=== PATIENT | male | born 2000 | race African-American/Black ===

== ENCOUNTER 2023-10-10 17:01 | Emergency (ER) | payer OTHER, SELFPAY ==
[2023-10-10 17:16] VITALS: BP 118/54; PULSE 79; RESP 16; TEMP 36.9; O2SAT 100
--- NOTE | 2023-10-10 17:35 | ED.URI ---
HPI - URI/Sore Throat General Chief Complaint: Upper Respiratory Infection Stated Complaint: Sinus Pain/Headache Time Seen by Provider: 10/10/23 17:35 Source: patient Mode of arrival: ambulatory Limitations: no limitations History of Present Illness HPI Narrative: 23-year-old male presents with complaint of sinus congestion, sinus pressure for the past 2 weeks. Was seen at a no other urgent care 2 days ago and given Augmentin and nasal spray. Did not take Augmentin dose this morning because sore throat pain resolved. Patient reports that he is fatigued and does not want to to work. Requesting work note. All systems reviewed and negative except as noted above. Related Data Home Medications Medication Instructions Recorded Confirmed amoxicillin 875 mg-potassium tablet 10/10/23 clavulanate 125 mg tablet fluticasone propionate 50 intranasal 10/10/23 mcg/actuation nasal spray,suspension Allergies Allergy/AdvReac Type Severity Reaction Status Date / Time No Known Allergies Allergy Verified 10/10/23 17:15 Review of Systems Review of Systems: CONSTITUTIONAL: Denies fever, chills, or sweats. EYES: Denies visual changes, redness, or discharge. ENT: Reports rhinorrhea, congestion, sinus pressure, sore throat. Denies otalgia. CARDIOVASCULAR: Denies chest pain, palpitations, or edema. RESPIRATORY: Denies cough or dyspnea. GASTROINTESTINAL: Denies abdominal pain, nausea, vomiting, or diarrhea. GENITOURINARY: Denies dysuria or hematuria. SKIN: Denies rash or itching. MUSCULOSKELETAL: Denies back pain, joint pain, or myalgia. NEUROLOGIC: Denies headache, numbness, or weakness. PSYCHIATRIC: Denies anxiety or depression. All other systems reviewed are negative, except as documented in HPI. PMFSH Comments At time of signature, agree with nursing past medical, surgical, social and family history. There is no relevant family history pertinent to the presenting complaint. Exam Narrative: GENERAL: This is a well-nourished, well-developed patient, in no apparent distress. HEAD: normocephalic, atraumatic. EYES: PERRL. Sclera clear/white. Vision is grossly intact. EARS: External ears normal, auditory canals clear and without drainage, fluid bilateral TMs without erythema or perforation. Hearing grossly intact. NOSE: External nose normal with purulent nasal drainage, erythema and swelling to bilateral nares. THROAT: Mucous membranes moist, mild erythema with postnasal drainage NECK: Neck supple, non-tender without lymphadenopathy, masses or thyromegaly. CARDIOVASCULAR: Regular rate and rhythm without murmurs, gallops, or rubs. RESPIRATORY: Clear to auscultation. Breath sounds equal bilaterally. No wheezes, rales, or rhonchi. SKIN: warm, Dry, intact with no suspicious lesions or rash, good texture and turgor. NEURO: awake, alert, and oriented to person, place and time. There were no obvious focal neurologic abnormalities. EXTREMITIES: No joint tenderness, effusion, or edema noted. Course Course Level of Care: Express Care Visit Vital Signs Vital signs: Vital Signs Temperature 36.9 C 10/10/23 17:16 Pulse Rate 79 10/10/23 17:16 Respiratory Rate 16 10/10/23 17:16 Blood Pressure 118/54 L 10/10/23 17:16 Pulse Oximetry 100 10/10/23 17:16 Oxygen Delivery Room Air 10/10/23 17:16 Temperature 36.9 C 10/10/23 17:16 Pulse Rate 79 10/10/23 17:16 Respiratory Rate 16 10/10/23 17:16 Blood Pressure 118/54 L 10/10/23 17:16 Pulse Oximetry 100 10/10/23 17:16 Oxygen Delivery Room Air 10/10/23 17:16 Reviewed MDM - URI/Sore Throat MDM Narrative Medical decision making narrative: Recommend patient continue Augmentin course. Will prescribe prednisone and antihistamine for bacterial sinusitis. Patient is aware of diagnosis, understands and agrees to treatment plan. Anticipatory guidance given. Patient agrees to follow-up as directed and is aware of reasons to seek care at the
== END 2023-10-10 17:46 | disposition home or self-care (01) ==
PROVIDERS: Emergency Provider Nurse Practitioner Family
DX: J01.90 Acute sinusitis, unspecified (principal)
CPT/HCPCS: 99213; G0463

== ENCOUNTER 2023-12-08 12:25 | Emergency (ER) | payer OTHER, SELFPAY ==
[2023-12-08 12:32] VITALS: BP 120/58; PULSE 65; RESP 20; TEMP 37.2; O2SAT 100
--- NOTE | 2023-12-08 12:40 | ED.GENADULT ---
HPI - General Adult General Chief complaint: Headache Stated complaint: Headache Time Seen by Provider: 12/08/23 12:40 Source: patient, RN notes reviewed and old records reviewed Mode of arrival: ambulatory Limitations: no limitations History of Present Illness HPI narrative: 23-year-old male to Express Care for complaint of intermittent headache for 3 days as well sinus congestion. Patient reports that the nasal discharge is yellow to clear. Patient denies fever sore throat, ear pain dizziness, visual changes, shortness breath. patient has attempted to treat at home with ibuprofen with limited relief. Patient states he was seen here not long ago and treated for sinusitis. Patient able to tolerate fluids by mouth. Respirations even nonlabored. Patient able to speak in complete sentences without difficulty. Patient in no acute distress. 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 Patient denies wearing ear protection. Patient requesting note for work. Related Data Allergies Allergy/AdvReac Type Severity Reaction Status Date / Time No Known Allergies Allergy Verified 10/10/23 17:15 Review of Systems Review of Systems: All systems reviewed & are unremarkable except as noted in HPI and below Constitutional: Constitutional: Reports no additional constitutional complaints Eyes: Eyes: Reports no additional eye complaints ENT: Reports system reviewed and no additional complaints, except as documented Cardiovascular: Cardiovascular: Reports no additional cardiovascular complaints, Denies chest pain and Denies dyspnea Respiratory: Respiratory: Reports no additional respiratory complaints, Denies cough and Denies dyspnea Musculoskeletal: Musculoskeletal: Reports no additional musculoskeletal complaints Neurologic: Reports system reviewed and no additional complaints, except as documented Psychiatric: Psychiatric: Reports no additional psychiatric complaints PMFSH Comments At the time of my signature, I reviewed and agree with the nursing past medical, surgical, social, and family history. There is no relevant family history pertinent to the patient complaint. Exam Const: General: cooperative, healthy appearing, comfortable, no acute distress, alert and well nourished Nutritional Appearance: well nourished Orientation/consciousness: patient oriented x3 Limitations: no limitations HENMT: Head: normal to inspection Ears: external ears normal Face/Nose/Sinus: Normal external nose present, Normal nares present, normal facial exam, No erythema and No edema Face and sinus: normal facial exam, no erythema and no edema Mouth: Yes Normal oral and palatal mucosa present Eyes: General: appearance normal, both eyes and all related structures Neck: Neck: normal visual inspection, full ROM and no meningeal signs Lymphatic: no lymphadenopathy noted and no lymphedema noted Chest: Chest palpation & inspection: normal inspection of the chest Resp: Effort & Inspection: normal respiratory effort and able to speak in complete sentences Auscultation: clear to auscultation bilaterally Cardio: Jugular venous distension: no JVD Rate: regular rate Rhythm: regular rhythm Back/Spine/Pelvis: Cervical Spine: cervical ROM normal Skin: General skin exam: normal color, no rashes or lesions noted and turgor normal Neuro: General: patient oriented x3, gait normal, moves all extremities and no meningeal signs Speech: normal speech Gait exam (Neuro): Normal gait present Extrem: General: normal to inspection, full ROM and capillary refill normal Psych: Appearance: grossly normal and well kempt Course Course Emergency Course: Some parts of this dictation were generated by voice recognition software and may contain typographical and/or grammatical inaccuracies. Level of Care: Express Care Visit Vital Signs Vital signs: Vital Signs Temperature 37.2 C 12/08/23 12:32
== END 2023-12-08 13:00 | disposition home or self-care (01) ==
PROVIDERS: Emergency Provider Nurse Practitioner Family
DX: J01.90 Acute sinusitis, unspecified (principal)
CPT/HCPCS: 99213; G0463

== ENCOUNTER 2023-12-10 08:45 | Emergency (ER) | payer OTHER, SELFPAY ==
[2023-12-10 08:51] VITALS: BP 130/69; PULSE 72; RESP 18; TEMP 37.3; O2SAT 100
--- NOTE | 2023-12-10 08:58 | ED.HA ---
HPI - Headache General Chief Complaint: Headache Stated Complaint: headache Time Seen by Provider: 12/10/23 08:58 Source: patient Mode of arrival: ambulatory Limitations: no limitations History of Present Illness HPI Narrative: 23 y/o male presented for c/o headache x4-5 days, with associated nasal congestion. Pt was seen 2 days ago for the same, given Rx levaquin and prednisone (also given work note). Continues to take Tylenol, ibuprofen, Excedrin without much improvement. 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 Pain is to the back of the head. Denies neck pain, numbness, tingling or weakness of upper extremities, dizziness, n/v/d/f/c. Related Data Allergies Allergy/AdvReac Type Severity Reaction Status Date / Time No Known Allergies Allergy Verified 10/10/23 17:15 Review of Systems Review of Systems: CONSTITUTIONAL: Denies body aches, fever, chills, or sweats. EYES: Denies visual changes, redness, or discharge. ENT: reports rhinorrhea, congestion, Denies sore throat, or otalgia. CARDIOVASCULAR: Denies chest pain, palpitations, or edema. RESPIRATORY: Denies cough or dyspnea. GASTROINTESTINAL: Denies abdominal pain, nausea, vomiting, or diarrhea. SKIN: Denies rash, itching, or wounds. MUSCULOSKELETAL: Denies back pain, joint pain, or myalgia. NEUROLOGIC: reports headache, Denies numbness, tingling, or weakness. All systems reviewed & are unremarkable except as noted in HPI and below PMFSH Comments At time of signature, I have reviewed and agree with nursing past medical, surgical, social and family history unless otherwise noted. Please see nursing chart for further information. There is no relevant family history pertinent to the presenting complaint Exam Narrative: GENERAL: Well-appearing HEAD: Normocephalic, atraumatic. EYES: EOMI. PERRLA, No redness or drainage. Conjunctivae normal. ENT: Mucous membranes pink and moist. No rhinorrhea. TMs normal bilaterally; left canal with excess cerumen. Throat normal. Uvula midline. NECK: Normal AROM. Supple. No lymphadenopathy. CHEST: No respiratory distress. Clear to auscultation. HEART: Regular rate and rhythm. No murmur appreciated. Normal peripheral pulses. ABDOMEN: Soft, nontender, nondistended, normal active bowel sounds. SKIN: Warm, dry, no rash. Capillary refill normal. Normal skin turgor. NEURO: No focal deficits. Alert and oriented x3. Gait steady. PSYCH: Normal affect. Course Course Emergency Course: Patient is aware of diagnosis, understands and agrees to treatment plan. Anticipatory guidance given. Patient agrees to follow-up as directed and is aware of reasons to seek care at the emergency department. Portions of this record may have been created with voice recognition software Level of Care: Express Care Visit Vital Signs Vital signs: Vital Signs Temperature 99.2 F 12/10/23 08:51 Pulse Rate 72 12/10/23 08:51 Respiratory Rate 18 12/10/23 08:51 Blood Pressure 130/69 12/10/23 08:51 Pulse Oximetry 100 12/10/23 08:51 Oxygen Delivery Room Air 12/10/23 08:51 Temperature 99.2 F 12/10/23 08:51 Pulse Rate 72 12/10/23 08:51 Respiratory Rate 18 12/10/23 08:51 Blood Pressure 130/69 12/10/23 08:51 Pulse Oximetry 100 12/10/23 08:51 Oxygen Delivery Room Air 12/10/23 08:51 MDM - Headache MDM Narrative Medical decision making narrative: Discussed physical exam findings c/w headache, pt requesting work note. Discussed ER transfer for persistent headache, but pt will monitor at this time. Declined covid testing. Rx ibuprofen and cyclobenzaprine, short course. Advised supportive measures and signs/symptoms to go to the ER. Pt is appropriate for outpt treatment and f/u. Differential Diagnosis Differential diagnosis: Likely migraine, tension headache, headache, sinusitis and other Discharge Plan Discharge Clinical Impres
== END 2023-12-10 09:17 | disposition home or self-care (01) ==
PROVIDERS: Emergency Provider Nurse Practitioner Family
DX: R51.9 Headache, unspecified (principal)
CPT/HCPCS: 99213; G0463

== ENCOUNTER 2024-04-05 12:23 | Emergency (ER) | payer OTHER, SELFPAY ==
[2024-04-05 12:32] VITALS: BP 116/70; PULSE 78; RESP 20; TEMP 36.8; O2SAT 100
--- NOTE | 2024-04-05 13:01 | ED.URI ---
HPI - URI/Sore Throat General Chief Complaint: Upper Respiratory Infection Stated Complaint: Sinus Congestion/Cough Blood Time Seen by Provider: 04/05/24 13:02 Source: patient and RN notes reviewed Mode of arrival: ambulatory Limitations: no limitations History of Present Illness HPI Narrative: 23-year-old male presents concern for 5 day history of cough, sinus pressure, headache and sore throat. Reports he started having a nose bleed today. He reports he is having chills, sweats, body aches before bed. He has not taken any medication for his symptoms MD elicited complaint: cough and nasal congestion Related Data Allergies Allergy/AdvReac Type Severity Reaction Status Date / Time No Known Allergies Allergy Verified 04/05/24 12:42 Review of Systems Review of Systems: CONSTITUTIONAL: Reports malaise, chills, sweats EYES: Denies visual changes, redness, or discharge. ENT: Reports rhinorrhea, congestion, bloody nose otalgia and sore throat. CARDIOVASCULAR: Denies chest pain, palpitations, or edema. RESPIRATORY: Reports cough. Denies dyspnea. GASTROINTESTINAL: Denies abdominal pain, nausea, vomiting, diarrhea SKIN: Denies rash or itching. MUSCULOSKELETAL: Reports myalgia. NEUROLOGIC: Denies headache. All systems reviewed & are unremarkable except as noted in HPI and below PMFSH Comments At time of signature, agree with nursing past medical, surgical, social and family history. There is no relevant family history pertinent to the presenting complaint Exam Narrative: GENERAL: Well-appearing, well-nourished, and in no acute distress. HEAD: Normocephalic EYES: PERRLA, conjunctivae clear ENT: Nares clear, turbinates edematous and erythematous, clear discharge. Mucous membranes moist. TM pearly juarez with dull light reflex bilaterally; no tragal tenderness. Oropharynx not erythematous without lesions. Tonsils not enlarged and without exudate, no drooling, no hoarseness, no trismus, uvula midline. NECK: Supple. No lymphadenopathy CHEST: Clear to auscultation, breath sounds equal. No wheezing, rhonchi, rales, or stridor. No respiratory distress, speaks in full sentences. HEART: Regular rate and rhythm. No murmur heard. SKIN: Warm, dry, no rash. NEURO: Alert and oriented x3. PSYCH: Normal mood and affect Course Course Emergency Course: Patient is aware of diagnosis, understands and agrees to treatment plan. Anticipatory guidance given. Patient agrees to follow-up as directed and is aware of reasons to seek care at the emergency department. Portions of this record may have been created with voice recognition software Level of Care: Express Care Visit Vital Signs Vital signs: Vital Signs Temperature 98.2 F 04/05/24 12:32 Pulse Rate 78 04/05/24 12:32 Respiratory Rate 20 04/05/24 12:32 Blood Pressure 116/70 04/05/24 12:32 Pulse Oximetry 100 04/05/24 12:32 Oxygen Delivery Room Air 04/05/24 12:32 Temperature 98.2 F 04/05/24 12:32 Pulse Rate 78 04/05/24 12:32 Respiratory Rate 20 04/05/24 12:32 Blood Pressure 116/70 04/05/24 12:32 Pulse Oximetry 100 04/05/24 12:32 Oxygen Delivery Room Air 04/05/24 12:32 Reviewed. MDM - URI/Sore Throat MDM Narrative Medical decision making narrative: Differential diagnosis considered: Weiss virus, strep pharyngitis, allergic rhinitis, upper respiratory tract infection, sinusitis, rhinosinusitis, nasopharyngitis. viral pharyngitis, otitis media, otitis externa, pneumonia, bronchitis, viral cough syndrome, viral syndrome, and influenza. Exam findings show no acute concerns or changes; patient is non-toxic appearing and is in no distress. Patient is appropriate for outpatient treatment and follow-up. Lab Data Attestation: I reviewed the patient's lab results. Critical Care Time Critical Care Time Critical Care Time: No Discharge Plan Discharge Clinical Impression: Sinobronchitis Patient Disposition: Home, Self-Care Condition: Stable Instructions: Sinusitis (ED), Acute Bronchitis (ED) Additional Instructions: Take medications as prescribed Nonprescription pain medications, such as acetaminophen (eg, Tylenol) or ibuprofen (eg, Motrin, Advil), are recommended for pain. Flushing the nose and sinuses with a saline solution several times per day has been proven to decrease pain associated with congestion and shorten the duration of symptoms. Medications to thin secretions (such as guaifenesin) may help to clear mucus. Please follow-up with your primary care doctor in the next 1-2 days. If you cannot follow-up with your primary care doctor please go to the ED for any urgent issues. If you have any worsening of symptoms or any other concerns please go to the ED immediately. Prescriptions: New prednisone 20 mg tablet 40 mg PO DAILY 5 Days Qty: 10 0RF [place] Saline 0.65 % aerosol,spray 2 spray intranasal QID PRN (Reason: dry nasal passages) Qty: 50 0RF Follow-up/Referrals: PHYSICIAN,NITROGLYCERIN SEPARATOR OPERATOR [Primary Care Provider] - Stand Alone Forms: Work/School Release IP Time of Disposition: 13:14
== END 2024-04-05 13:15 | disposition home or self-care (01) ==
PROVIDERS: Emergency Provider Nurse Practitioner
DX: J32.9 Chronic sinusitis, unspecified (principal); J40 Bronchitis, not specified as acute or chronic
CPT/HCPCS: 99213; G0463

== ENCOUNTER 2024-06-07 11:36 | Emergency (ER) | payer OTHER, SELFPAY ==
[2024-06-07 11:42] VITALS: BP 126/80; PULSE 77; RESP 16; TEMP 37.2; O2SAT 100
--- NOTE | 2024-06-07 12:21 | ED_ITS ---
HPI - URI/Sore Throat General Chief Complaint: Upper Respiratory Infection Stated Complaint: Sinus Pain Time Seen by Provider: 06/07/24 11:58 Source: patient, RN notes reviewed and old records reviewed Mode of arrival: ambulatory Limitations: no limitations History of Present Illness HPI Narrative: 23 year old male who presents to [facility] care with complaints of sinus congestion with drainage for 1 week duration with some sinus pressure. Patient reports that he has not had a known fever, no chills or sweats or any body aches. Patient reports that he has been using Vicks vapor vicks vap cough drops for his symptoms. MD elicited complaint: rhinorrhea, nasal congestion and sinus pain Onset (ago): week(s) (1) Severity: mild Description of mucous: yellow Able to tolerate fluids by mouth: Yes Treatments prior to arrival: other (farhad vapor cough drops) Related Data Allergies Allergy/AdvReac Type Severity Reaction Status Date / Time No Known Allergies Allergy Verified 06/07/24 11:44 Review of Systems Review of Systems: CONSTITUTIONAL: Denies malaise, chills, sweats, or fever. EYES: Denies visual changes, redness, or discharge. ENT: Reports rhinorrhea, congestion, sinus pain, no otalgia and no sore throat. CARDIOVASCULAR: Denies chest pain, palpitations, or edema. RESPIRATORY: Reports no acute cough.? Denies dyspnea. GASTROINTESTINAL: Denies abdominal pain, nausea, vomiting, diarrhea SKIN: Denies rash or itching. MUSCULOSKELETAL: Denies myalgia. NEUROLOGIC: Denies headache. All systems reviewed & are unremarkable except as noted in HPI and below PMFSH Past Medical History Medical History (Updated 06/08/24 @ 10:36 by Ebony Fernandez NP) Sinusitis Social History Social History Smoking status: Current every day smoker Tobacco type: e-cigarettes/vaping Alcohol intake: current Alcohol use details: social Substance use: unknown Gender identity (if verbalized by the patient): Male Comments At time of signature, agree with nursing past medical, surgical, social and family history. There is no relevant family history pertinent to the presenting complaint Exam Narrative: GENERAL: Well-appearing, well-nourished, and in no acute distress. HEAD: Normocephalic EYES: PERRLA, conjunctivae clear ENT: Nares red, turbinates edematous and erythematous, clear light yellow tinged.discharge, sinus pressure. Mucous membranes moist. TM pearly juarez with dull light reflex bilaterally; no tragal tenderness. Oropharynx erythematous without lesions. Tonsils not enlarged and without exudate, no drooling, no hoarseness, no trismus, uvula midline.post nasal drainage NECK: Supple. No lymphadenopathy CHEST: Clear to auscultation, breath sounds equal. No wheezing, rhonchi, rales, or stridor. No respiratory distress, speaks in full sentences.no acute cough SAO2 100% on room air HEART: Regular rate and rhythm. No murmur heard. SKIN: Warm, dry, no rash. NEURO: Alert and oriented x3. PSYCH: Normal mood and affect Course Course Emergency Course: Patient is aware of diagnosis, understands and agrees to treatment plan.? Anticipatory guidance given.? Patient agrees to follow-up as directed and is aware of reasons to seek care at the emergency department. Portions of this record may have been created with voice recognition software Level of Care: Express Care Visit Vital Signs Vital signs: Vital Signs Temperature 37.2 C 06/07/24 11:42 Pulse Rate 77 06/07/24 11:42 Respiratory Rate 16 06/07/24 11:42 Blood Pressure 126/80 06/07/24 11:42 Pulse Oximetry 100 06/07/24 11:42 Oxygen Delivery Room Air 06/07/24 11:42 Temperature 37.2 C 06/07/24 11:42 Pulse Rate 77 06/07/24 11:42 Respiratory Rate 16 06/07/24 11:42 Blood Pressure 126/80 06/07/24 11:42 Pulse Oximetry 100 06/07/24 11:42 Oxygen Delivery Room Air 06/07/24 11:42 Reviewed MDM - URI/Sore Throat MDM Narrative Medical decision making narrative: Differential diagnosis considered: Weiss virus, strep pharyngitis, allergic rhinitis, upper respiratory tract infection, sinusitis, rhinosinusitis, nasopharyngitis. viral pharyngitis, otitis media, otitis externa, pneumonia, bronchitis, viral cough syndrome, viral syndrome, and influenza.? Exam findings show no acute concerns or changes; patient is non-toxic appearing and is in no distress.? Patient is appropriate for outpatient treatment and follow-up. Differential Diagnosis Differential diagnosis: Likely upper respiratory infection, sinusitis, viral infection and other (rhinosinusitis) Medical Records Attestation: I reviewed the patient's medical records. Lab Data Attestation: I reviewed the patient's lab results. Critical Care Time Critical Care Time Critical Care Time: No Discharge Plan Discharge Clinical Impression: Upper respiratory infection Qualifiers: URI type: unspecified URI Qualified Code(s): J06.9 - Acute upper respiratory infection, unspecified Patient Disposition: Home, Self-Care Condition: Stable Instructions: Upper Respiratory Infection (ED) Additional Instructions: Increase fluids especially juices and water [id number] cough and cold medicine of your choice for your symptoms Tylenol or ibuprofen for any fever pain heat to the face 20-30 minutes 4-6 times a day for pain Salt water gargles, throat lozenges or throat sprays as desired Nora daily take as ordered If your symptoms persist, change or worsen significantly before you can contact your personal physician then please, without delay, go to the emergency department for further evaluation. Follow-up with PCP in 7-10 days or sooner if needed Follow up with PCP soon in regards to your blood pressure which is elevated above threshold for referral. Blood pressure above 120/80 may indicate pre- hypertension. Minimal elevation 126/80 Patient Language: Pakistani Prescriptions: New fexofenadine [Nora Allergy] 60 mg tablet 60 mg PO Q12H Qty: 20 0RF No Action prednisone 20 mg tablet 40 mg PO DAILY 5 Days Qty: 10 0RF [place] Saline 0.65 % aerosol,spray 2 spray intranasal QID PRN (Reason: dry nasal passages) Qty: 50 0RF Follow-up/Referrals: PHYSICIAN,VASCULAR TECHNOLOGIST SONOGRAPHER [Primary Care Provider] - Stand Alone Forms: Work/School Release IP Time of Disposition: 12:33 Quality [place] Coma Scale Eyes: Open Verbal: Oriented and Alert Motor: Follows Commands [place] Coma Total Score: 15
--- OUTSIDE RECORDS SUMMARY | 2024-06-07 12:33 | XMS_ITS | Continuity of Care Document ---
Author Organization [facility] Address [address] [place] [address] Phone Care Team Providers Care Tool Supervisor Name Role Phone Jaylene Gonzalez NP Unavailable Unavailable Allergies, Adverse Reactions, Alerts Substance Reaction Status Criticality No Known Allergies Active No Inform ation Medications Medication Instructions Dosage Effective Dates (start - stop) Status Comments IBUPROFEN (unknown strength) Not Available - Active Tylenol-Codeine #3 300 mg-30 mg tablet take 1 tablet by oral route every 6 hours as needed - No Longer Active [place] 5 mg-325 mg tablet - No Longer Active Procedures Procedure Date Ankle Xray Complete Min 3 Views 016 Office/outpatient visit,[facility], [place] 2015 Ankle Xray Complete Min 3 Views 016 [place] [facility] [place] [facility] [place] Distal Tibia FX Articular Portion Clsd T rtmnt W/o Manip Advance Directives Directive Yes / No Effective Date File Name No Information Encounters Encounter Description Practice Location Reason(s) For Visit Diagnoses Date Provider Providers Copied on Encounter Office/outpat ient visit,est, low [facility], [address], [place], [id number], [place] tel:[phone] [facility] ankle (chief complaint) Oth fx lower end of r tibia, subs for clos fx w routn heal Carlos Mariee. [address], [place], [id number] , . tel:[phone] Office/outpat ient visit,[facility], [address] [place] [address], [id number], tel:[phone] [facility] right ankle pain (chief complaint) Other closed fracture of distal end of right tibia with routine healing, subsequent encounter Jeniffer Rodriguez. [address], [place], [place], [id number] , . tel:[phone] Office/outpat ient visit,[facility], [address] [place] [address], [id number], tel:[phone] [facility] right ankle pain (chief complaint) Acute right ankle painOther closed fracture of distal end of right tibia, initial encounter Jeniffer Rodriguez. [address], [place], [place], [id number] , . [phone] Referring Provider: Bg Ragland, [address] [place], [address]. tel:[phone] Family History Family Member Type Diagnosis Age At Onset Maternal grandmother [facility]finding[facility] Payers Payer name Insurance type Covered green party ID Authorfranklyn hernandez(s) [facility] [id number] Social History Type Description Quantity Date Captured Comments Alcohol Use Details Unknown Caffeine Use Details Unknown Tobacco Use Status Never smoked tobacco 2015 Smoking Status Never smoker Non-Smoking Tobacco Use Details : No Details Available : No Details Available Sex Male Vital Signs Date / Time: Height Weight BMI Pulse Rate Blood Pressure Temperature Respiratory Rate Body Surface Area Head Circumference Head Circ. Percentile Wt./Mika. Percentile BMI percentile Pulse Ox Inhaled Ox 10:15 AM 63.00 in 72.575 kg (160.00 lbs) 28.3 4 kg/m eter (2) 62 /min 1216/71 mm[Hg] 97 Chief Complaint And Reason For Visit From encounter dated '01/22/2016 09:50'. ankle (chief complaint) Reason For Referral Reason For Referral No Information Plan Of Treatment Date Type Action Status Future Order: Radiology Order An kle Xray Complete Min 3 Views (21945), Ordered on: Ordered Future Order: Radiology Order An kle Xray Complete Min 3 Views ([id number]), Ordered on: Ordered Future Order: Radiology Order An kle Xray 2 Views ([id number]), Ordered on: Ordered History Of Present Illness Encounter Date Complaint History Of Prese nt Illness ankle right ankle pain Mr Ruiz is a 14 year 10 month old male who complains of right ankle pain. He presents with pain and fracture on the right side. The symptoms occur occasionally. The problem is better. Currently the patient states that the symptoms are mild. The pain is described as aching. The symptoms occur with mild activity. He rates his current pain as 1/10. The symptoms are aggravated by daily activities and walking. Manjit states that the symptoms are relieved by rest and elevation. Manjit presents following his right ankle Salter III distal tibia fracture on 06/02/2015. His cast is removed today. He states he really is not having any pain unless he has been very active. He feels this is more likely due to the fatigue of using the crutches and holding his leg up with the weight of the cast. right ankle pain Mr Ruiz is a 14 year 8 month old male who complains of right ankle pain. He presents with pain and fracture on the right side. He states that the symptoms have been acute traumatic and began on 06/02/2015. He indicates the injury occurred at school. Manjit states that the symptoms began as the result of a twisting movement. The symptoms occur constantly. The problem is unchanged. Currently the patient states that the symptoms are mild. The pain is described as throbbing. The symptoms occur with activity. He rates his current pain as 8/10. The symptoms are aggravated by ascending stairs, daily activities, descending stairs, standing and walking. Manjit states that the symptoms are relieved by elevation, rest and pain medicine. 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 He went to make a hard turn and rolled his right ankle. He states he heard a pop at the time. He presented to the ER and was placed into an air cast and on crutches. He has not been putting any weight on it. Functional Status Date Functional Assessmen t No Information Instructions Date Instruction Additional Infor shanice My recommendation is for Manjit to start weightbearing at this point. His ROM and strength is very good considering he has been casted. He can wean back into his activities letting pain be his guide. He can return to PE in two weeks without limitations. I will see him back in six months for a recheck with radiographs to check his growth plate. If there are any questions, problems or concerns I will be available. Related to Other closed fracture of distal end of right tibia with routine healing, subsequent encounter My recommendation is to place Manjit into a cast. I explained to him and his mother that he is to be nonweightbearing in the cast for six to eight weeks. They do understand that if he weightbears and the fracture position changes, they could be looking at surgical intervention. Cast care instructions are also given. He will be given a note for no PE or sports. I will give him some Tylenol #3 for pain control. I will see him back in six to eight weeks with radiographs. If there are any questions, problems or concerns I will be available. Related to Other closed fracture of distal end of right tibia, initial encounter Patient was educated on the diagnosis and treatment plan. Related to Acute right ankle pain Assessments Type Assessment Date assessment Ot fx lower end of r tibia, sub s for clos fx w routn heal Patient Care Teams Name Effective Dates (start - stop) Status Members No Information
--- OUTSIDE RECORDS SUMMARY | 2024-06-07 12:35 | XMS_ITS | Continuity of Care Document ---
Author Organization [facility] Address [address] [place] [address] Phone Care Team Providers Care Sales And Service Officer Name Role Phone Jaylene Gonzalez NP Unavailable Unavailable Allergies, Adverse Reactions, Alerts Substance Reaction Status Criticality No Known Allergies Active No Inform ation Medications Medication Instructions Dosage Effective Dates (start - stop) Status Comments IBUPROFEN (unknown strength) Not Available - Active Tylenol-Codeine #3 300 mg-30 mg tablet take 1 tablet by oral route every 6 hours as needed - No Longer Active [place] 5 mg-325 mg tablet - No Longer Active Procedures Procedure Date Ankle Xray Complete Min 3 Views 016 Office/outpatient visit,[facility], low 2015 Ankle Xray Complete Min 3 Views 016 Office[place] visit[place], [facility] [place] [facility] [place] Distal Tibia FX Articular Portion Clsd T rtmnt W/o Manip Advance Directives Directive Yes / No Effective Date File Name No Information Encounters Encounter Description Practice Location Reason(s) For Visit Diagnoses Date Provider Providers Copied on Encounter Office/outpat ient visit,est, low [facility], [address] [place], [place], [id number], [place] tel:[phone] [facility] ankle (chief complaint) Oth fx lower end of r tibia, subs for clos fx w routn heal Carlos Mariee. [address] [place] [place], [place], [id number] , . tel:[phone] Office/outpat ient visit,[facility], [address] [place] [address], [id number], tel:[phone] [facility] right ankle pain (chief complaint) Other closed fracture of distal end of right tibia with routine healing, subsequent encounter Jeniffer Rodriguez. [address], [place], [place], [id number] , . tel:[phone] Office/outpat ient visit,[facility], [address] [place] [address], [id number], tel:[phone] [facility] right ankle pain (chief complaint) Acute right ankle painOther closed fracture of distal end of right tibia, initial encounter Jeniffer Rodriguez. [address], [place], [place], [id number] , . [phone] Referring Provider: Bg Ragland, [address] [place], [address]. tel:[phone] Family History Family Member Type Diagnosis Age At Onset Maternal grandmother [facility]finding) [facility] Payers Payer name Insurance type Covered alliance party ID Authorfranklyn hernandez(s) [facility] [id number] Social History Type Description Quantity Date Captured [...] An kle Xray Complete Min 3 Views ([id number]), Ordered on: Ordered Future Order: Radiology Order An kle Xray Complete Min 3 Views ([id number]), Ordered on: Ordered Future Order: Radiology Order An kle Xray 2 Views ([id number]), Ordered on: Ordered History Of Present Illness [...]
== END 2024-06-07 12:43 | disposition home or self-care (01) ==
PROVIDERS: Emergency Provider Registered Nurse
DX: J06.9 Acute upper respiratory infection, unspecified (principal); F17.290 Nicotine dependence, other tobacco product, uncomplicated
CPT/HCPCS: 99213; G0463

== ENCOUNTER 2024-06-24 09:58 | Emergency (ER) | payer OTHER, SELFPAY ==
--- OUTSIDE RECORDS SUMMARY | 2024-06-24 10:22 | XMS_ITS | Continuity of Care Document ---
Author Organization [facility] Address [address] [place] [address] Phone Care Team Providers Care Demand Planning Manager Name Role Phone Jaylene Gonzalez NP Unavailable Unavailable Allergies, Adverse Reactions, Alerts Substance Reaction Status Criticality No Known Allergies Active No Inform ation Medications Medication Instructions Dosage Effective Dates (start - stop) Status Comments IBUPROFEN (unknown strength) Not Available - Active Tylenol-Codeine #3 300 mg-30 mg tablet take 1 tablet by oral route every 6 hours as needed - No Longer Active [place] 5 mg-325 mg tablet - No Longer Active Procedures Procedure Date Ankle Xray Complete Min 3 Views 016 Office/outpatient visit,[facility], low 2015 Ankle Xray Complete Min 3 Views 016 Office/outpatient visit,est, [facility] [place] 2015 Office/outpatient visit,[place], [facility] [place] Distal Tibia FX Articular Portion Clsd T rtmnt W/o Manip Advance Directives Directive Yes / No Effective Date File Name No Information Encounters Encounter Description Practice Location Reason(s) For Visit Diagnoses Date Provider Providers Copied on Encounter Office/outpat ient visit,est, low [facility], [address] [place], [place], [id number], [place] tel:[phone] [facility] ankle (chief complaint) Oth fx lower end of r tibia, subs for clos fx w routn heal Carlos Mariee. [address] [place], [place], [id number] , . tel:[phone] Office/outpat ient visit,[facility], [address] [place] [address], [id number], tel:[phone] [facility] right ankle pain (chief complaint) Other closed fracture of distal end of right tibia with routine healing, subsequent encounter Jeniffer Rodriguez. [address], [place], [place], [id number] , . tel:[phone] Office/[facility]pat ient visit[facility], [address] [place] [address], [id number], tel:[phone] [facility] right ankle pain (chief complaint) Acute right ankle painOther closed fracture of distal end of right tibia, initial encounter Jeniffer Rordiguez. [address], [place], [place], [id number] , . [phone] Referring Provider: Bg Ragland, [address] [place], [address]. tel:[phone] Family History Family Member Type Diagnosis Age At Onset Maternal grandmother [facility]finding) [facility] Payers Payer name Insurance type Covered republican ID Authorfranklyn hernandez(s) [facility] [id number] Social History Type Description Quantity Date Captured [...] An kle Xray Complete Min 3 Views ([id number]), Ordered on: Ordered Future Order: Radiology Order An kle Xray Complete Min 3 Views ([id number]), Ordered on: Ordered Future Order: Radiology Order An kle Xray 2 Views ([id number]), Ordered on: Ordered History Of Present Illness [...]
[2024-06-24 10:44] VITALS: BP 113/62; PULSE 68; RESP 18; TEMP 36.9; O2SAT 100
--- NOTE | 2024-06-24 11:51 | ED.GENADULT ---
HPI - General Adult General Chief complaint: Abdominal Pain Stated complaint: stomach pain Time Seen by Provider: 06/24/24 11:45 Source: patient, RN notes reviewed and old records reviewed Mode of arrival: ambulatory Limitations: no limitations History of Present Illness HPI narrative: 23 year old male presents to [facility] care with complaints of some bad stomach pains and body aches on his left side for the past 2 days. Patient denies any nausea or vomiting has had some episodes of diarrhea. Patient reports no fevers or chills or any cold symptoms. Patient reports that he is not feeling well, has not taken any OTC medications for his symptoms. Patient states he had some abdominal pain on the left side today when he was lifting at work, area left mid side . Patient has no bulging noted in abdomen or acute pain on palpation. Onset (ago): day(s) (2 days bad stomach with some diarrheaand today pain left mid abdomen with lifting. ) Location: left Radiation: non-radiation Severity scale (1-10): 3 Treatments prior to arrival: none Related Data Allergies Allergy/AdvReac Type Severity Reaction Status Date / Time No Known Allergies Allergy Verified 06/24/24 10:47 Review of Systems Review of Systems: CONSTITUTIONAL: Denies fever, chills, or sweats. EYES: Denies visual changes, redness, or discharge. ENT: Denies rhinorrhea, congestion, sore throat, or otalgia. CARDIOVASCULAR: Denies chest pain, palpitations, or edema. RESPIRATORY: Denies cough or dyspnea. GASTROINTESTINAL: Reports some left mid abdominal pain, no nausea, vomiting, reports diarrhea. GENITOURINARY: Denies dysuria or hematuria. SKIN: Denies rash or itching. MUSCULOSKELETAL: Denies back pain, joint pain, or myalgia. NEUROLOGIC: Denies headache, numbness, or weakness. PSYCHIATRIC: Denies anxiety or depression. All systems reviewed & are unremarkable except as noted in HPI and below PMFSH Past Medical History Medical History Sinusitis Social History Social History Smoking status: Current every day smoker Tobacco type: e-cigarettes/vaping Alcohol intake: current Alcohol use details: social Substance use: unknown Gender identity (if verbalized by the patient): Male Comments At time of signature, agree with nursing past medical, surgical, social and family history. There is no relevant family history pertinent to the presenting complaint Exam Narrative: GENERAL: Well-appearing, well-nourished, and in no acute distress. HEAD: Normocephalic, atraumatic. EYES: PERRLA and EOMI. ENT: Nares clear, no rhinorrhea or epistaxis. Mucous membranes moist.TM's normal, throat pink without swelling NECK: Supple.no lymphadenopathy CHEST: Clear to auscultation. No respiratory distress. SAO2 100% on room air HEART: Regular rate and rhythm. No murmur heard. Normal peripheral pulses. ABDOMEN: Soft, nontender, to palpation, nondistended, normal active bowel sounds states some diarrhea . reports pain with lifting mid left abdomen with no bulging noted or acute pain on palpation no radiation of discomfort. EXTREMITIES: Normal range of motion. No edema. SKIN: Warm, dry, no rash. NEURO: No focal deficits. Alert and oriented x3. Course Course Emergency Course: Patient is aware of diagnosis, understands and agrees to treatment plan.? Anticipatory guidance given.? Patient agrees to follow-up as directed and is aware of reasons to seek care at the emergency department. Portions of this record may have been created with voice recognition software Level of Care: Express Care Visit Vital Signs Vital signs: Vital Signs Temperature 36.9 C 06/24/24 10:44 Pulse Rate 68 06/24/24 10:44 Respiratory Rate 18 06/24/24 10:44 Blood Pressure 113/62 06/24/24 10:44 Pulse Oximetry 100 06/24/24 10:44 Oxygen Delivery Room Air 06/24/24 10:44 Temperature 36.9 C 06/24/24 10:44 Pulse Rate 68 06/24/24 10:44 Respiratory Rate 18 06/24/24 10:44 Blood Pressure 113/62 06/24/24 10:44 Pulse Oximetry 100 06/24/24 10:44 Oxygen Delivery Room Air 06/24/24 10:44 Reviewed Medical Decision Making MDM Narrative Medical decision making narrative: Exam findings and imaging show no acute concerns or changes; patient is non-toxic appearing and is in no distress.? Patient is appropriate for outpatient treatment and follow-up Differential Diagnosis Differential Diagnosis: abdominal pain, diarrhea, muscle strain left mid abdomen,viral infection Medical Records Medical records reviewed: Yes I reviewed the external patient's medical records. Vital Signs Vital Signs: Vital Signs Temperature 36.9 C 06/24/24 10:44 Pulse Rate 68 06/24/24 10:44 Respiratory Rate 18 06/24/24 10:44 Blood Pressure 113/62 06/24/24 10:44 Pulse Oximetry 100 06/24/24 10:44 Oxygen Delivery Room Air 06/24/24 10:44 Temperature 36.9 C 06/24/24 10:44 Pulse Rate 68 06/24/24 10:44 Respiratory Rate 18 06/24/24 10:44 Blood Pressure 113/62 06/24/24 10:44 Pulse Oximetry 100 06/24/24 10:44 Oxygen Delivery Room Air 06/24/24 10:44 Lab Data Lab results reviewed: Yes I reviewed the patient's lab results. Lab results narrative: Covid antigen negative, Influenza A negative, Influenza B negative Labs: Lab Results 06/24/24 Range/Units 12:22 POC Influenza A Ag Negative (Negative) POC Influenza B Ag Negative (Negative) POC SARS CoV-2 Ag Negative (Negative) reviewed Critical Care Time Critical Care Time Critical Care Time: No Discharge Plan Discharge Clinical Impression: Abdominal pain Qualifiers: Abdominal location: left lower quadrant Qualified Code(s): R10.32 - Left lower quadrant pain Diarrhea Qualifiers: Diarrhea type: unspecified type Qualified Code(s): R19.7 - Diarrhea, unspecified Patient Disposition: Home, Self-Care Condition: Stable Instructions: Acute Diarrhea (ED), Abdominal Pain (ED) Additional Instructions: Clear liquids for the next 8-10 hours, then advance to a bland diet as tolerated A bland diet can consist of--BRAT diet which is bananas, rice, applesauce, and toast Avoid fried, greasy, fatty, fried foods Avoid caffeine, nicotine, and alcohol Return to your regular diet in the next 3-4 days Nryy-ezi-rzgwvma Imodium fo develop diarrhea Follow-up with her PCP if continued problems or uncontrolled pain Tylenol or ibuprofen for any fever pain Go to the ER if increased abdominal pain If your symptoms persist, change or worsen significantly before you can contact your personal physician then please, without delay, go to the emergency department for further evaluation. Follow-up with PCP in 7-10 days or sooner if needed Patient Language: Romanian Prescriptions: No Action fexofenadine [Nora Allergy] 60 mg tablet 60 mg PO Q12H Qty: 20 0RF prednisone 20 mg tablet 40 mg PO DAILY 5 Days Qty: 10 0RF [place] Saline 0.65 % aerosol,spray 2 spray intranasal QID PRN (Reason: dry nasal passages) Qty: 50 0RF Follow-up/Referrals: PHYSICIAN,MODELING AND SIMULATION ANALYST [Primary Care Provider] - Stand Alone Forms: Work/School Release IP Time of Disposition: 12:56 Quality [place] Coma Scale Eyes: Open Verbal: Oriented and Alert Motor: Follows Commands [place] Coma Total Score: 15
[2024-06-24 12:58] LABS: EDCOVIDSCREEN Negative (Negative); EDINFLUASCREEN Negative (Negative); EDINFLUBSCREEN Negative (Negative)
== END 2024-06-24 13:01 | disposition home or self-care (01) ==
PROVIDERS: Emergency Provider Registered Nurse
DX: R10.32 Left lower quadrant pain (principal); R19.7 Diarrhea, unspecified; F17.290 Nicotine dependence, other tobacco product, uncomplicated; Z20.822 Contact with and (suspected) exposure to COVID-19
CPT/HCPCS: 87426; 87804; 99212; G0463

== ENCOUNTER 2024-11-09 11:13 | Emergency (ER) | payer SELFPAY ==
--- OUTSIDE RECORDS SUMMARY | 2024-11-09 11:22 | XMS_ITS | Encounter Summary ---
Author Organization [facility] Address [address] [place] [address] Phone Care Team Providers Care Benefits Representative Name Role Phone No, Physician Primary Care Provider Encounter Details Date Type Department Care Team (Late st Contact Info) Description 10/04/2024 Results Follow-Up [facility] Cardiology [address] Advanced Medicine [address]th [place] [address] [place] [address] Lucrecia Montano MD [address] [place] [address] CRP (cardiac risk) Social History Tobacco Use Types Packs/Day Years Used Date Smoking Tobacco: Never Smokeless Tobacco: Current Personal Safety Answer Date Recorded Have you ever been in or are you currently in a harmful physical or emotional relationship or is someone making you feel afraid or unsafe? Denies 09/20/2024 Sex and Gender Information Value Date Recorded Sex Assigned at Not on file Legal Sex Male 6:09 PM [employer] Gender Identity Not on file Sexual Orientation Not on file documented as of this encounter Plan of Treatment Not on file documented as of this encounter Visit Diagnoses Not on filedocumented in this encounter Care Teams Benefits Representative Relationship Specialty Start Date End Date No, Physician PCP - General 09/17/24 documented as of this encounter
--- OUTSIDE RECORDS SUMMARY | 2024-11-09 11:22 | XMS_ITS | Referral Summary ---
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 Name Role Phone No, Physician Primary Care Provider [phone] Encounters Date Type Department Care Team Description 10/07/2024 Results Follow-Up [facility] Cardiology [address] [place] [address] Advanced Medicine 8th [place] [address] [place] [address] Rico Montano MD Transthoracic Echo (TTE) Limited/Followup 10/06/2024 4:00 PM CDT - 10/06/2024 11:59 PM CDT Hospital Encounter [facility] Cardiac Diagnostic Lab [address] [place] [address] [address] [place] [address] Atypical chest pain Discharge Disposition: Discharge to home or self care 10/05/2024 Orders Only [facility] Cardiology [address] [place] [address] Advanced Medicine 8th [place] [address] [place] [address] Iris Osman RN 10/05/2024 Telephone [facility] Cardiology [address] [place] [address] Advanced Medicine 8th [place] [address] [place] [address] Rico Montano MD 10/04/2024 Results Follow-Up [facility] Cardiology [address] [place] [address] Advanced Medicine 8th [place] [address] [place] [address] Rico Montano MD CRP (cardiac risk) 10/01/2024 11:50 AM CDT Lab [facility] Lab [address] [place] [address] Atypical chest pain 09/28/2024 Telephone [facility] Cardiology Formerly [facility] 8th [place] [address] [place] [phone] Rico Montano MD 09/28/2024 11:00 AM CDT Office Visit [facility] Cardiology [facility] 8th [place] [address] [place] [phone] Rico Montano MD Atypical chest pain (Primary Dx); Elevated blood pressure reading in office without diagnosis of hypertension 09/21/2024 Telephone [facility] Emergency Department [address] [place] [phone] Darrell Patel RN 09/21/2024 Telephone [facility] Cardiology [address] [place] [address] 8th [place] [address] [place] [phone] Hodan Jiménez 09/20/2024 5:20 AM CDT - 09/20/2024 9:08 AM CDT Emergency [facility] Emergency Department [address] [place] [phone] Rocio Pina MD Smith, Nathanael James, MD Other chest pain (Primary Dx) Discharge Disposition: Discharge to home or self care 09/17/2024 2:57 PM CDT - 09/17/2024 11:59 PM CDT Hospital Encounter [facility] Emergency, Room R Discharge Disposition: Discharge to home or self care 09/17/2024 6:49 PM CDT - 09/17/2024 8:19 PM CDT Emergency [facility] Emergency Department [address] [place] [address] Chest pain, unspecified type (Primary Dx) Discharge Disposition: Discharge to home or self care from Last 3 Months Allergies No known active allergies Medications ibuprofen (ADVIL,MOTRIN) 600 mg tablet Take 1 tablet (600 mg total) by mouth every 6 (six) hours as needed for pain. 30 tablet 7 Active albuterol HFA (PROVENTIL HFA,VENTOLIN HFA) 90 mcg/actuation inhaler Inhale 2 puffs every 4 (four) hours as needed for wheezing. 1 Inhaler 8 Active Additional Information Patient not taking.Reason: Other (stop using), Reported on 09/28/2024 ketorolac (TORADOL) 10 mg tablet Take 1 tablet (10 mg total) by mouth every 6 (six) hours as needed for pain 20 tablet 5 Active Additional Information Patient not taking.Reason: no pain, Reported on 09/28/2024 famotidine (PEPCID) 20 mg tablet Take 1 tablet (20 mg total) by mouth 2 (two) times a day for 15 days 30 tablet 5 Active Additional Information Patient not taking.Reason: stop taking, Reported on 09/28/2024 cyclobenzaprine (FLEXERIL) 5 mg tablet Take 1 tablet (5 mg total) by mouth nightly as needed for muscle spasms for up to 10 doses 10 tablet 5 Active methocarbamoL (ROBAXIN) 750 mg tablet Take 1 tablet (750 mg total) by mouth 4 (four) times a day As needed for muscle pain 30 tablet 5 Active Active Problems Problem Noted Date Diagnosed Date Injury of right hand 07/27/2018 Immunizations Immunization Administration Dates Next Due DTaP 03/21/2004,02/24/2003,2002 DTaP / Hep B / IPV 05/03/2003 DTaP 5 Pertussis 10/20/2013,12/29/2007, 4 HPV, Unspecified 12/16/2017,12/23/2016 HPV9 12/16/2017,12/23/2016 Hep A, Ped Unspecified 12/29/2008,12/19/2005 Hep A, Pediatric 12/29/2007 Hep A, Unspecified 12/29/2008,12/19/2005 Hep B, Adolescent or Pediatric 2002,2002 Hep B, Unspecified 05/03/2003,2002, 003 HiB 03/21/2004, 3,02/24/2003, 003 IPV 2006, 3,02/24/2003, 003 Influenza, Unspecified 01/11/2020 MMR 12/23/2016,12/29/2007,2003 MMRV 12/23/2016 Meningococcal ACWY, Unspecified 10/20/2013,09/12 Meningococcal Conjugate (Menveo) 10/20/2013 Pneumococcal Conjugate 7-Valent 12/20/19 06,05/03/2003,02/24/2003, 003 Pneumococcal Conjugate, Unspecified 12/19/2005,1 2002,02/24/2003 Polio, Unspecified 12/29/2007 Tdap 10/20/2013 Varicella 12/23/2016,12/29/2007,2003 Social History Tobacco Use Types Packs/Day Years Used Date Smoking Tobacco: Never Smokeless Tobacco: Current Tobacco Cessation:Ready to Q uit: Not Asked; Counseling Given: Not Answered Personal Safety Answer Date Recorded Have you ever been in or are you currently in a harmful physical or emotional relationship or is someone making you feel afraid or unsafe? 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 Gender Identity Not on file Sexual Orientation Not on file Last Filed Vital Signs Vital Sign Reading Time Taken Comments Blood Pressure 133/77 09/28/2024 11:17 AM CDT Pulse 57 09/28/2024 11:17 AM CDT Temperature 36.4 C (97.6 F) 09/20/2024 4:59 AM CDT Respiratory Rate 13 09/20/2024 7:00 AM CDT Oxygen Saturation 100% 09/28/2024 11:17 AM CDT Inhaled Oxygen Concentration - - Weight 81.2 kg (179 lb) 09/28/2024 11:17 AM CDT Height 177.8 cm (5' 10) 09/28/2024 11:17 AM CDT Body Mass Index 25.68 09/28/2024 11:17 AM CDT Plan of Treatment Not on file Procedures Procedure Name Priority Date/Time Associated Diagnosis Comments TRANSTHORACIC ECHO (TTE) LIMITED/FOLLOW UP W LTD DOPPLER/CF WO CONTRAST Urgent 10/06/2024 5:06 PM CDT Atypical chest pain ERYTHROCYTE SEDIMENTATION RATE Routine 10/01/2024 11:53 AM CDT Atypical chest pain CRP, HIGH SENSITIVITY Routine 10/01/2024 11:53 AM CDT Atypical chest pain XR CHEST PA LATERAL 2 VIEWS ED 09/20/2024 6:29 AM CDT EGFR STAT 09/20/2024 5:28 AM CDT DIFFERENTIAL AUTO STAT 09/20/2024 5:2 8 AM CDT D-DIMER, QUANTITATIVE STAT 09/20/2024 5:28 AM CDT COMPREHENSIVE METABOLIC PANEL STAT 09/20/2024 5:28 AM CDT CBC WITH AUTO DIFFERENTIAL STAT 09/20/2024 5:28 AM CDT ECG 12-LEAD STAT 09/20/2024 5:05 AM CDT TROPONIN T HIGH-SENSITIVITY Routine 09/17/2024 6:55 PM CDT XR CHEST PA LATERAL 2 VIEWS ED 09/17/2024 4:27 PM CDT TROPONIN T HIGH-SENSITIVITY SERIES (BASELINE, 2HR, 4HR, 6HR) Add-On 09/17/2024 4:17 PM CDT EGFR STAT 09/17/2024 4:17 PM CDT DIFFERENTIAL AUTO STAT 09/17/2024 4:1 7 PM CDT COMPREHENSIVE METABOLIC PANEL STAT 09/17/2024 4:17 PM CDT CBC WITH AUTO DIFFERENTIAL STAT 09/17/2024 4:17 PM CDT ECG 12-LEAD STAT 09/17/2024 4:16 PM CDT from Last 3 Months Results * TRANSTHORACIC ECHO (TTE) LIMITED/FOLLOW UP W LTD DOPPLER/CF WO CONTRAST (10/06/2024 5:06 PM CDT) EF Mod BP 59 % CONS SCIMAGE Anatomical Region Laterality Modality Ultrasound 10/06/2024 4:41 PM CDT Narrative 10/07/2024 6:06 AM CDT [facility] Cardiac Diagnostic [place] [address] [place] [address] Transthoracic Echocardiographic Report Patient Name: MANJIT RUIZ O : 2000 (24y ) Gender: M Study Date: 10/06/2024 04:41:59 PM Ht(Inch): 70 Wt(Lb): 179.01 BSA: 2 Director Of Sales And Marketing: Melany Gonzalez RDCS Location: [facility] Order Provider: RICO MONTANO Heart Rate: 75 BMI: 25.68 BP: 135 / 66 Ref Provider: RICO MONTANO PROCEDURES: Echocardiographic Report: Transthoracic complete echo with strain imaging, 2D, spectral and tissue Doppler, color flow Doppler, M-mode. INDICATIONS: R07.89 Other chest pain. CONCLUSIONS: 1. Mildly dilated left ventricle based on volume index. Normal LV wall thickness. Normal left ventricular systolic function. The Ejection Fraction (Camargo's) is measured at 59 %. The average global longitudinal strain is borderline. 2. There are no regional wall motion abnormalities. 3. Normal right ventricular size. Normal right ventricular systolic function. ATTESTATION: I have personally reviewed and interpreted this study without fellow or resident. - DISCLAIMER: The study images and the final report will be retained in the patient chart by the Echo Laboratory for the legally required time period. This chart constitutes the legal record of any testing performed. FINDINGS: Left Ventricle: Mildly dilated left ventricle based on volume index. Normal LV wall thickness. Normal left ventricular systolic function. The Ejection Fraction (Camargo's) is measured at 59 %. The average global longitudinal strain is borderline. The LV global strain is: -17.5 %. Regional Wall Motion: There are no regional wall motion abnormalities. Right Ventricle: Normal right ventricular size. Normal right ventricular systolic function. The right ventricular strain is more negative than -17%. Left Atrium: The left atrium is normal in size. Right Atrium: The right atrium is normal in size. Mitral Valve: Normal mitral valve structure. No mitral regurgitation. No stenosis present. Aortic Valve: Normal trileaflet aortic valve. No aortic regurgitation. No aortic valve stenosis. Aortic valve dimensionless index is 0.86. Tricuspid Valve: Normal tricuspid valve structure. No tricuspid regurgitation. No tricuspid valve stenosis. Pulmonic Valve: Normal pulmonic valve structure. No pulmonic regurgitation. No pulmonic valve stenosis present. Pericardium: No pericardial effusion. Aorta: Normal aortic root size at sinuses of Valsalva. Normal aortic root size when indexed. PASP: Normal estimated pulmonary artery systolic pressure. Rhythm: Normal Sinus rhythm was seen during the study. MEASUREMENTS: 2D/MM Value Range Doppler Value Range LVIDd 2D 4.89 cm [ 4.20 - 5.80 ] AV Peak Twan 1.3 m/s [ 1.0 - 1.7 ] LVIDs 2D 3.32 cm [ 2.50 - 4.00 ] AV Peak PG 6.76 mmHg IVSd 2D 0.65 cm [ 0.60 - 1.00 ] AV Mean PG 4 mmHg LVPWd 2D 0.72 cm [ 0.60 - 1.00 ] AV VTI 24.1 cm LV Thickness Ratio 0.9 LVOT Peak Twan 1.0 m/s [ 0.7 - 1.1 ] LV FS 2D 32.03 % [ 25.00 - 43.00 ] LVOT Peak PG 4.00 mmHg LV Mass 2D 111.16 g LVOT Mean PG 3 mmHg LV Mass Index 2D 55.58 g/m2 LVOT VTI 20.8 cm RWT 0.29 LVOT Diam 2.00 cm EDV Mod BP 163.95 ml [ 62.00 - 150.00 ] YONIS VTI 2.71 cm2 LV EDV Index 81.98 ml/m2 LVOT/AV VTI 0.86 - Dimensionless index (DVI) ESV Mod BP 67.22 ml [ 21.00 - 61.00 ] MV E Peak Twan 0.7 m/s [ 0.6 - 1.3 ] EF Mod BP 59 % [ 52 - 72 ] MV A Peak Twan 0.4 m/s [ 1.0 - 1.2 ] LV GLS -17.5 % [ -25.0 - -18.0 ] MV E/A 2.0 ratio [ 0.8 - 1.5 ] IVC Diam 1.77 cm MV Decel Time 204.12 msec [ 104.00 - 258.00 ] AoR Diam 2D 3.19 cm [ 3.10 - 3.70 ] Med E` Twan 16.1 cm/sec [ 8.0 - 25.0 ] Ao Root Index 1.60 cm/m2 [ 1.00 - 2.00 ] Lat E` Twan 18.5 cm/sec [ 10.0 - 25.0 ] Average E/E` 4.05 RV S` 11.08 cm/sec Electronically Signed By: Dm Santo MD 10/07/2024 6:05:49 AM CDT CC: Rico Montano MD Procedure Note Dm Santo MD - 10/07/2024 [facility] Cardiac [place] [address] Transthoracic Echocardiographic Report Patient Name: MANJIT RUIZ O : 2000 (24y ) Gender: M Study Date: 10/06/2024 04:41:59 PM Ht(Inch): 70 Wt(Lb): 179.01 BSA: 2 Director Of Sales And Marketing: Melany Gonzalez [facility] Location: [facility] Order Provider:RICO MONTANO Heart Rate: 75 BMI: 25.68 BP: 135 / 66 Ref Provider: RICO MONTANO PROCEDURES: Echocardiographic Report: Transthoracic complete echo with strain imaging,2D, spectral and tissue Doppler, color flow Doppler, M-mode. INDICATIONS: R07.89 Other chest pain. CONCLUSIONS: 1. Mildly dilated left ventricle based on volume index. Normal LV wallthickness. Normal left ventricular systolic function. The Ejection Fraction (Camargo's) ismeasured at 59 %. The average global longitudinal strain is borderline. 2. There are no regional wall motion abnormalities. 3. Normal right ventricular size. Normal right ventricular systolicfunction. ATTESTATION: I have personally reviewed and interpreted this study without fellow orresident. - DISCLAIMER: The study images and the final report will be retained in the patientchart by the Echo Laboratory for the legally required time period. This chart constitutesthe legal record of any testing performed. FINDINGS: Left Ventricle: Mildly dilated left ventricle based on volume index.Normal LV wall thickness. Normal left ventricular systolic function. The EjectionFraction (Camargo's) is measured at 59 %. The average global longitudinal strain is borderline.The LV global strain is: -17.5 %. Regional Wall Motion: There are no regional wall motion abnormalities. Right Ventricle: Normal right ventricular size. Normal right ventricularsystolic function. The right ventricular strain is more negative than -17%. Left Atrium: The left atrium is normal in size. Right Atrium: The right atrium is normal in size. Mitral Valve: Normal mitral valve structure. No mitral regurgitation. Nostenosis present. Aortic Valve: Normal trileaflet aortic valve. No aortic regurgitation. Noaortic valve stenosis. Aortic valve dimensionless index is 0.86. Tricuspid Valve: Normal tricuspid valve structure. No tricuspidregurgitation. No tricuspid valve stenosis. Pulmonic Valve: Normal pulmonic valve structure. No pulmonicregurgitation. No pulmonic valve stenosis present. Pericardium: No pericardial effusion. Aorta: Normal aortic root size at sinuses of Valsalva. Normal aortic rootsize when indexed. PASP: Normal estimated pulmonary artery systolic pressure. Rhythm: Normal Sinus rhythm was seen during the study. MEASUREMENTS: 2D/MM Value Range DopplerValue Range LVIDd 2D 4.89 cm [ 4.20 - 5.80 ] AV Peak Vel1.3 m/s [ 1.0 - 1.7 ] LVIDs 2D 3.32 cm [ 2.50 - 4.00 ] AV Peak PG6.76 mmHg IVSd 2D 0.65 cm [ 0.60 - 1.00 ] AV Mean PG4 mmHg LVPWd 2D 0.72 cm [ 0.60 - 1.00 ] AV VTI24.1 cm LV Thickness Ratio 0.9 LVOT Peak Vel1.0 m/s [ 0.7 - 1.1 ] LV FS 2D 32.03 % [ 25.00 - 43.00 ] LVOT Peak PG4.00 mmHg LV Mass 2D 111.16 g LVOT Mean PG3 mmHg LV Mass Index 2D 55.58 g/m2 LVOT VTI20.8 cm RWT 0.29 LVOT Diam2.00 cm EDV Mod BP 163.95 ml [ 62.00 - 150.00 ] YONIS VTI2.71 cm2 LV EDV Index 81.98 ml/m2 LVOT/AV VTI0.86 - Dimensionless index (DVI) ESV Mod BP 67.22 ml [ 21.00 - 61.00 ] MV E Peak Vel0.7 m/s [ 0.6 - 1.3 ] EF Mod BP 59 % [ 52 - 72 ] MV A Peak Vel0.4 m/s [ 1.0 - 1.2 ] LV GLS -17.5 % [ -25.0 - -18.0 ] MV E/A2.0 ratio [ 0.8 - 1.5 ] IVC Diam 1.77 cm MV Decel Oebl450.12 msec [ 104.00 - 258.00 ] AoR Diam 2D 3.19 cm [ 3.10 - 3.70 ] Med E` Vel16.1 cm/sec [ 8.0 - 25.0 ] Ao Root Index 1.60 cm/m2 [ 1.00 - 2.00 ] Lat E` Vel18.5 cm/sec [ 10.0 - 25.0 ] Average E/E` 4.05 RV S` 11.08 cm/sec Electronically Signed By: Dm Santo MD 10/07/2024 6:05:49 AM CDT CC: Rico Montano MD Rico Montano MD CV ECHO PROCEDURES Final R esult * Erythrocyte sedimentation rate (10/01/2024 11:53 AM CDT) [facility] Erythrocyte sedimentation rate 2 1 - 15 mm/hr Comment:Testing performed by : [facility], [address] [place] [address]., [id number] Blood 10/01/2024 11:5 3 AM CDT 10/01/2024 12:42 PM CDT us Rico Montano MD LAB BLOOD ORDERABLES Final Result [id number] [facility] Department [place] [address] * CRP (cardiac risk) (10/01/2024 11:53 AM CDT) Pathologist [facility] hsCRP 0.90 mg/L Comment: Interpretive data Adult only - values greater than or equal to 10 mg/L are consistent with infection or inflammation. Individuals with evidence of active infection, systemic inflammatory processes, or trauma should not be tested until these conditions have abated. When using HS CRP to assess cardiovascular risk, two measurements should be taken, two weeks apart (averaging results). The CDC/AHA recommended the following HS CRP cut off points (tertiles) for CVD assessment. Adult low risk <1.0 mg/L Average risk 1.0 - 3.0 mg/L High Risk >3.0 mg/L Current interpretive data was last revised on 2017. Testing performed by: [facility], [address] [place] [address]., [id number] Blood 10/01/2024 11:5 3 AM CDT 10/01/2024 12:42 PM CDT us Rico Montano MD LAB BLOOD ORDERABLES Final Result [address] [facility] Department [place] [address] * XR Chest Pa Lateral 2 Views (09/20/2024 6:29 AM CDT) Anatomical Region Laterality Modality Body, Chest N/A Computed Radiogr aphy 09/20/2024 7:37 AM CDT Impressions 09/20/2024 7:37 AM CDT Comparison is made to prior study of 09/17/2024. In the interval, no change. The lungs are clear. Specifically, no pulmonary edema or pneumonia. No pleural effusion or pneumothorax. Heart size and mediastinal contour are unchanged. Electronically signed by: Bud Cannon M.D. Narrative 09/20/2024 7:37 AM CDT EXAMINATION: 2 view chest radiograph Procedure Note Bud Cannon MD - 09/20/2024 EXAMINATION: 2 view chest radiograph IMPRESSION: Comparison is made to prior study of 09/17/2024. In the interval, no change. The lungs are clear. Specifically, no pulmonary edema or pneumonia. No pleural effusion or pneumothorax. Heart size and mediastinal contour are unchanged. Electronically signed by: Bud Cannon M.D. us Rocio Pina MD IMG XR PROCEDURES Fin al Result * eGFR (09/20/2024 5:28 AM CDT) eGFR >90 >=60 mL/min/1. 73 m2 Comment: Interpretive Data Reference Interval Normal >/= 90 mL/min/1.73m2 Mildly decreased* 60 - 89 mL/min/1.73m2 Mildly to moderately decreased 45 - 59 mL/min/1.73m2 Moderately to severely decreased 30 - 44 mL/min/1.73m2 Severely decreased 15 - 29 mL/min/1.73m2 Kidney Failure < 15 mL/min/1.73m2 *Relative to young adult level Estimated glomerular filtration rate is determined by the 2020 CKD-EPI equation recommended by the National Kidney Foundation (A Unifying Approach to GFR Estimation: Recommendations of the NKF-ASK Task Force on Reassessing the Inclusion of Race in Diagnosing Kidney Disease, JASN 2020). The CKD-EPI equation should not be used for patients with unstable renal function and has not been validated in children and those over 70. Current interpretive data was last reviewed 2021. Blood 09/20/2024 5:28 AM CDT 09/20/2024 5:43 AM CDT us Diogenes Bal MD LAB BLOOD ORDERABLES F inal Result [facility] [address] [facility] Department [place] [address] * Differential, auto (09/20/2024 5:28 AM CDT) Neutrophil abs 4.76 1.50 - 6.50 K/cumm Imm gran abs 0.02 0.00 - 0.10 K/cumm [facility] Lymphocyte abs 1.76 0.80 - 3.30 K/cumm [facility] Monocyte abs 0.66 0.20 - 0.80 K/cumm [facility] Eosinophil abs 0.25 0.00 - 0.50 K/cumm [facility] Basophil abs 0.03 0.00 - 0.10 K/cumm [facility] Neutrophil pct 63.7 % [facility] Comment: Interpretive Data Percent cell count reference ranges are not reported, since discordance with absolute values may lead to misinterpretation of CBC data. Current Interpretive Data was last revised on 2017. Imm gran pct 0.3 % [facility] Comment: Interpretive Data Percent cell count reference ranges are not reported, since discordance with absolute values may lead to misinterpretation of CBC data. Current Interpretive Data was last revised on 2017. Lymphocyte pct 23.5 % [facility] Comment: Interpretive Data Percent cell count reference ranges are not reported, since discordance with absolute values may lead to misinterpretation of CBC data. Current Interpretive Data was last revised on 2017. Monocyte pct 8.8 % [facility] Comment: Interpretive Data Percent cell count reference ranges are not reported, since discordance with absolute values may lead to misinterpretation of CBC data. Current Interpretive Data was last revised on 2017. Eosinophil pct 3.3 % [facility] Comment: Interpretive Data Percent cell count reference ranges are not reported, since discordance with absolute values may lead to misinterpretation of CBC data. Current Interpretive Data was last revised on 2017. Basophil pct 0.4 % [facility] Comment: Interpretive Data Percent cell count reference ranges are not reported, since discordance with absolute values may lead to misinterpretation of CBC data. Current Interpretive Data was last revised on 2017. Blood 09/20/2024 5:28 AM CDT 09/20/2024 5:43 AM CDT Rocio Pina MD LAB BLOOD ORDERABLES Final Result [facility] [address] [facility] Department [place] [address] * CBC with auto differential (09/20/2024 5:28 AM CDT) WBC 7.48 3.80 - 9.90 K/cumm Hgb 13.9 13.0 - 17.5 g/dL [facility] Hct 41.8 38.9 - 50.3 % [facility] Plt 206 150 - 400 K/cumm [facility] MPV 10.4 9.1 - 12.[address] [facility] RBC 4.95 4.30 - 5.80 M/cumm [facility] MCV 84.4 81.3 - 96.[address] [facility] MCH 28.1 27.1 - 33.[address] [facility] MCHC 33.3 32.3 - 35.7 g/dL [facility] RDW CV 13.1 11.1 - 14.9 % [facility] RDW SD 40.0 35.7 - 48.[address] [facility] NRBC abs 0.00 0.00 - 0.01 K/cumm [facility] Blood Venous blood specimen / Unknown 09/20/2024 5:28 AM CDT 09/20/2024 5:43 AM CDT Rocio Pina MD LAB BLOOD ORDERABLES Final Result Performing Organization Address City/[facility]/ZIP Co de Phone Number [facility] [place] [address] * D-dimer, quantitative (09/20/2024 5:28 AM CDT) D-Dimer <215 <=499 ng/mL FEU Comment: Interpretive data FDA approved the D-dimer, in conjunction with a low or moderate pretest probability score, to exclude venous thromboembolic events (VTE) (PE and DVT) in outpatients when the D-dimer result is < 500 ng/ml FEU. Evidence supports using an age-adjusted D-dimer cut-off for outpatients older than 50 (age x 10) to improve specificity without sacrificing sensitivity. Example: age 68, VTE cut-off 680 ng/ml FEU. References; Schouten HT et al. Brit Med J. 2013;346:f2492. Radha et al. Annals Int Med. 2015;163:701-11. Current interpretive data was last revised on 2019. Blood 09/20/2024 5:28 AM CDT 09/20/2024 5:43 AM CDT Shahnaz Carmen MD LAB BLOOD ORDERABLES Final Result Performing Organization Address City/[facility]/ZIP Co de Phone Number [facility] Department [place] [email or web address] [address] * Comprehensive metabolic panel (09/20/2024 5:28 AM CDT) Sodium 144 135 - 145 mmol/L Potassium, pl 4.4 3.3 - 4.9 mmol/L [facility] Chloride 107 97 - 110 mmol/L [facility] CO2 26 22 - 32 mmol/L [facility] Anion gap 11 2 - 15 mmol/L [facility] BUN 17 6 - 25 mg/dL [facility] Creatinine 1.05 0.80 - 1.30 mg/dL [facility] Glucose 85 70 - 199 mg/dL [facility] Comment: Interpretive Data Fasting glucose >/= 126 mg/dl is diagnostic for diabetes. Fasting is defined as no caloric intake for at least 8 hours. Fasting glucose between 100 mg/dl to 125 mg/dl is diagnostic of prediabetes. In a patient with classic symptoms of hyperglycemia or hyperglycemic crisis, a random glucose >/= 200 mg/dl is diagnostic for diabetes. In the absence of unequivocal hyperglycemia, results should be confirmed by repeat testing. The classification and Diagnosis of Diabetes Diabetes Care 2021; 46: S19-S40. Current interpretive data was last revised 2022. Calcium 10.0 8.5 - 10.3 mg/dL [facility] Bilirubin, total 0.2 0.1 - 1.2 mg/dL [facility] Protein, pl 7.4 6.5 - 8.5 g/dL [facility] Albumin 4.5 3.5 - 5.0 g/dL [facility] Alk phos 108 40 - 130 Units/L [facility] ALT 16 7 - 55 Units/L [facility] AST 26 10 - 50 Units/L [facility] Blood 09/20/2024 5:28 AM CDT 09/20/2024 5:43 AM CDT Rocio Pina MD LAB BLOOD ORDERABLES Final Result [facility] Department [place] [address] * ECG 12-LEAD (09/20/2024 5:05 AM CDT) Narrative [facility] - 09/20/2024 5:05 AM CDT Diogenes Bal MD 09/20/2024 5:06 AM ECG 12 lead Date/Time: 09/20/2024 5:05 AM Performed by: Diogenes Bal MD Authorized by: Diogenes Bal MD Rate: ECG rate: 62 ECG rate assessment: normal Rhythm: Rhythm: sinus rhythm and sinus arrhythmia Ectopy: Ectopy: none QRS: QRS axis: Normal QRS intervals: Normal Conduction: Conduction: normal ST segments: ST segments: Normal T waves: T waves: normal Other findings: Other findings: LVH Previous ECG: Previous ECG: Compared to current Date of previous EC09/17/2024 Similarity: No change Interpretation: Interpretation: non-specific Recommended Follow-up: Recommended follow up: further workup in the ED us Rocio Pina MD ECG ORDERABLES Final Result Performing Organization Address City/[facility]/ZIP Co de Phone Number [facility] * Troponin T high-sensitivity (09/17/2024 6:55 PM CDT) Trop T hs <6 <=22 ng/L Comment: Interpretive Data For further hscTnT resources including the diagnostic algorithm and an aid in interpretation, copy and paste this link: https://nrl.testcatalog.org/show/hsTrop Current Interpretive Data last revised 2020. Blood 09/17/2024 6:55 PM CDT 09/17/2024 6:58 PM CDT us Aimee SHUKLA LAB BLOOD ORDERABLES Final Resu lt [facility] ([place]) 1 [facility] Department [place] [address] * XR Chest PA Lateral 2 Views (09/17/2024 4:27 PM CDT) Anatomical Region Laterality Modality Body, Chest N/A Computed Radiogr aphy 09/17/2024 4:46 PM CDT Narrative 09/17/2024 4:47 PM CDT EXAM DESCRIPTION: XR CHEST PA LATERAL 2 VIEWS REASON FOR STUDY: chest pain Complaint of chest pressure that radiates down L arm. 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 Pt Vapes TECHNIQUE: There are 2 radiographic view(s) of the chest. COMPARISON: Prior exam 10/12/2019 FINDINGS: LUNGS: Pulmonary vascularity appears normal. No confluent infiltrate or effusion. Costophrenic angles are sharp. Mild hyperinflation. HEART/MEDIASTINUM: Cardiac silhouette normal in size. Mediastinal and hilar contours appear normal. LINES/TUBES: None. BONES: No acute osseous abnormality. IMPRESSION: No acute findings or infiltrate. Mild hyperinflation. THIS IS AN ELECTRONICALLY VERIFIED FINAL REPORT 09/17/2024 4:47 PM - Electronically signed by Alverto MATA Report ID: [id number] Reading Location: [id number] Procedure Note Alverto Salazar MD - 09/17/2024 EXAM DESCRIPTION: XR CHEST PA LATERAL 2 VIEWS REASON FOR STUDY: chest pain Complaint of chest pressure that radiates down L arm. 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 Pt Vapes TECHNIQUE: There are 2 radiographic view(s) of the chest. COMPARISON: Prior exam 10/12/2019 FINDINGS: LUNGS: Pulmonary vascularity appears normal. No confluent infiltrate or effusion. Costophrenic angles are sharp. Mild hyperinflation. HEART/MEDIASTINUM: Cardiac silhouette normal in size. Mediastinal andhilar contours appear normal. LINES/TUBES: None. BONES: No acute osseous abnormality. IMPRESSION: No acute findings or infiltrate. Mild hyperinflation. THIS IS AN ELECTRONICALLY VERIFIED FINAL REPORT 09/17/2024 4:47 PM - Electronically signed by Alverto MATA: ESPERANZA Report ID: [id number] Reading Location: [id number] us Yamil Edgar MD IMG XR PROCEDURES Final Res ult * Troponin T high-sensitivity series (baseline, 2hr, 4hr, 6hr) (09/17/2024 4:17 PM CDT) Trop T hs 10 <=22 ng/L Comment: Interpretive Data For further hscTnT resources including the diagnostic algorithm and an aid in interpretation, copy and paste this link: https://nrl.testcatalog.org/show/hsTrop Current Interpretive Data last revised 2020. Blood 09/17/2024 4:17 PM CDT 09/17/2024 6:51 PM CDT us Aimee SHUKLA LAB BLOOD ORDERABLES Final Resu lt [facility] 1 [facility] Department of Laboratories [place], [place] [id number] * eGFR (09/17/2024 4:17 PM CDT) eGFR >90 >=60 mL/min/1. 73 m2 Comment: Interpretive Data Reference Interval Normal >/= 90 mL/min/1.73m2 Mildly decreased* 60 - 89 mL/min/1.73m2 Mildly to moderately decreased 45 - 59 mL/min/1.73m2 Moderately to severely decreased 30 - 44 mL/min/1.73m2 Severely decreased 15 - 29 mL/min/1.73m2 Kidney Failure < 15 mL/min/1.73m2 *Relative to young adult level Estimated glomerular filtration rate is determined by the 2020 CKD-EPI equation recommended by the National Kidney Foundation (A Unifying Approach to GFR Estimation: Recommendations of the NKF-ASK Task Force on Reassessing the Inclusion of Race in Diagnosing Kidney Disease, JASN 2020). The CKD-EPI equation should not be used for patients with unstable renal function and has not been validated in children and those over 70. Current interpretive data was last reviewed 2021. Blood 09/17/2024 4:17 PM CDT 09/17/2024 4:21 PM CDT us Yamil Edgar MD LAB BLOOD ORDERABLES Final Result [facility] [place] 1 [facility] Department [place] [address] * Differential, auto (09/17/2024 4:17 PM CDT) Neutrophil abs 4.75 1.50 - 6.50 K/cumm Imm gran abs 0.03 0.00 - 0.10 K/cumm [facility] ([place]) Lymphocyte abs 1.51 0.80 - 3.30 K/cumm [facility] ([place]) Monocyte abs 0.39 0.20 - 0.80 K/cumm [facility] ([place]) Eosinophil abs 0.16 0.00 - 0.50 K/cumm [facility] ([place]) Basophil abs 0.02 0.00 - 0.10 K/cumm [facility] ([place]) Neutrophil pct 69.3 % [facility] ([place]) Comment: Interpretive Data Percent cell count reference ranges are not reported, since discordance with absolute values may lead to misinterpretation of CBC data. Current Interpretive Data was last revised on 2017. Imm gran pct 0.4 % [facility] ([place]) Comment: Interpretive Data Percent cell count reference ranges are not reported, since discordance with absolute values may lead to misinterpretation of CBC data. Current Interpretive Data was last revised on 2017. Lymphocyte pct 22.0 % [facility] ([place]) Comment: Interpretive Data Percent cell count reference ranges are not reported, since discordance with absolute values may lead to misinterpretation of CBC data. Current Interpretive Data was last revised on 2017. Monocyte pct 5.7 % [facility] ([place]) Comment: Interpretive Data Percent cell count reference ranges are not reported, since discordance with absolute values may lead to misinterpretation of CBC data. Current Interpretive Data was last revised on 2017. Eosinophil pct 2.3 % [facility] ([place]) Comment: Interpretive Data Percent cell count reference ranges are not reported, since discordance with absolute values may lead to misinterpretation of CBC data. Current Interpretive Data was last revised on 2017. Basophil pct 0.3 % [facility] ([place]) Comment: Interpretive Data Percent cell count reference ranges are not reported, since discordance with absolute values may lead to misinterpretation of CBC data. Current Interpretive Data was last revised on 2017. Blood 09/17/2024 4:17 PM CDT 09/17/2024 4:21 PM CDT Yamil Edgar MD LAB BLOOD ORDERABLES Final Result [facility] ([place]) 1 [facility] Department [place] [address] * CBC with auto differential (09/17/2024 4:17 PM CDT) WBC 6.86 3.80 - 9.90 K/cumm Hgb 13.7 13.0 - 17.5 g/dL [facility] ([place]) Hct 41.7 38.9 - 50.3 % [facility] ([place]) Plt 239 150 - 400 K/cumm [facility] ([place]) MPV 10.3 9.1 - 12.3 fL [facility] ([place]) RBC 4.87 4.30 - 5.80 M/cumm [facility] ([place]) MCV 85.6 81.3 - 96.4 fL [facility] ([place] MCH 28.1 27.1 - 33.3 pg [facility] ([place]) MCHC 32.9 32.3 - 35.7 g/dL [facility] ([place]) RDW CV 13.1 11.1 - 14.9 % [facility] ([place] RDW SD 40.7 35.7 - 48.1 fL [facility] ([place]) NRBC abs 0.00 0.00 - 0.01 K/cumm [facility] ([place]) Blood Venous blood specimen / Unknown 09/17/2024 4:17 PM CDT 09/17/2024 4:21 PM CDT us Yamil Edgar MD LAB BLOOD ORDERABLES Final Result [facility] ([place]) 1 [facility] Department of Laboratories [place], [place] [id number] * (ABNORMAL) Comprehensive metabolic panel (09/17/2024 4:17 PM CDT) Sodium 140 135 - 145 mmol/L Potassium, pl 3.3 3.3 - 4.9 mmol/L [facility] Chloride 107 97 - 110 mmol/L [facility] CO2 22 22 - 32 mmol/L [facility] ([place] Anion gap 11 2 - 15 mmol/L [facility] ([place] BUN 8 6 - 25 mg/dL [facility] ([place]) Creatinine 0.86 0.80 - 1.30 mg/dL [facility] ([place]) Glucose 75 70 - 199 mg/dL [facility] ([place]) Comment: Interpretive Data Fasting glucose >/= 126 mg/dl is diagnostic for diabetes. Fasting is defined as no caloric intake for at least 8 hours. Fasting glucose between 100 mg/dl to 125 mg/dl is diagnostic of prediabetes. In a patient with classic symptoms of hyperglycemia or hyperglycemic crisis, a random glucose >/= 200 mg/dl is diagnostic for diabetes. In the absence of unequivocal hyperglycemia, results should be confirmed by repeat testing. The classification and Diagnosis of Diabetes Diabetes Care 2021; 46: S19-S40. Current interpretive data was last revised 2022. Calcium 8.3(L) 8.5 - 10.3 mg/dL [facility] ([place]) Bilirubin, total 0.3 0.1 - 1.2 mg/dL [facility] ([place]) Protein, pl 6.0(L) 6.5 - 8.5 g/dL [facility] ([place]) Albumin 3.8 3.5 - 5.0 g/dL [facility] ([place]) Alk phos 91 40 - 130 Units/L [facility] ([place]) ALT 13 7 - 55 Units/L [facility] ([place]) AST 20 10 - 50 Units/L [facility] ([place]) Blood 09/17/2024 4:17 PM CDT 09/17/2024 4:21 PM CDT us Yamil Edgar MD LAB BLOOD ORDERABLES Final Result [facility] ([place]) 1 [facility] Department [place] [address] * ECG 12 lead (09/17/2024 4:16 PM CDT) 09/17/2024 4:16 PM CDT Narrative [facility] - 09/18/2024 10:40 AM CDT Vent Rate: 70 bpm RR Interval: 847 msec AL Interval: 150 msec QRS Duration: 102 msec QT Interval: 391 msec QTC Interval: 412 msec P-R-T [place]: 17 - 55 - 21 degrees IMPRESSION: SINUS RHYTHM WITH SINUS ARRHYTHMIA ST ELEVATION, PROBABLY EARLY REPOLARIZATION [ST ELEVATION WITH NORMALLY INFLECTED T WAVE] BORDERLINE ECG Compared to prior EKG, heart rate has increased ST elevations are more evident Electronically Signed By: Duke Aldana MD us Yamil Edgar MD ECG ORDERABLES Final Resul t Performing Organization Address City/[facility] Co de Phone Number [facility] [employer] [facility] from Last 3 Months Insurance Care Teams [employer] Relationship Specialty Start Date End Date No, Physician PCP - General 09/17/24
--- OUTSIDE RECORDS SUMMARY | 2024-11-09 11:22 | XMS_ITS | Clinical Summary ---
Author Organization [facility] Address [address] [place] [address] Care Team Providers Care Shutdown Coordinator Name Role Phone No, Physician Primary Care Provider [phone] Allergies No known active allergies Medications ibuprofen [...] As needed for muscle pain 30 tablet Active Active Problems Problem Noted Date Diagnosed Date Injury of right hand 07/27/2018 Encounters Date Type Department Care Team Description 10/07/2024 Results Follow-Up [facility] Cardiology [address] [place] [address] [place] [address] [place] [address] Rico Montano MD Transthoracic Echo (TTE) Limited/Followup 10/06/2024 4:00 PM CDT - 10/06/2024 11:59 PM CDT Hospital Encounter [facility] Cardiac Diagnostic Lab [address] [place] [phone] Atypical chest pain Discharge Disposition: Discharge to home or self care 10/05/2024 Orders Only [facility] Cardiology [address] [place] [address] [place] [address] Iris Osman RN 10/05/[address] [place] [address] Rico Montano MD 10/04/2024 Results Follow-Up [facility] Cardiology [address] [place] [address] [place] [address] Rico Montano MD CRP (cardiac risk) 10/01/2024 11:50 AM CDT Lab [facility] Lab [address] [place] [address] Atypical chest pain 09/28/2024 11:00 AM CDT Office Visit [facility] Cardiology [address] [place] [address] [place] [address] Rico Montano MD Atypical chest pain (Primary Dx); Elevated blood pressure reading in office without diagnosis of hypertension 09/28/2024 Telephone [facility] Cardiology [address] [place] [address] [place] [address] Rico Montano MD 09/21/2024 Telephone [facility] [address] [place] [address] Darrell Patel RN 09/21/2024 Telephone [facility] Cardiology [facility] 8th [place] [address] [place] [phone] Hodan Jiménez 09/20/2024 5:20 AM CDT - 09/20/2024 9:08 AM CDT Emergency [facility] [address] [place] [address] Rocio Pina MD Smith, Navjot Ramírez MD Other chest pain (Primary Dx) Discharge Disposition: Discharge to home or self care 09/17/2024 6:49 PM CDT - 09/17/2024 8:19 PM CDT Emergency [facility] Emergency Department 1 [place] [address] Chest pain, unspecified type (Primary Dx) Discharge Disposition: Discharge to home or self care 09/17/2024 2:57 PM CDT - 09/17/2024 11:59 PM CDT Hospital Encounter [facility] Emergency, Room R Discharge Disposition: Discharge to home or self care from Last 3 Months Immunizations Immunization Administration Dates Next Due DTaP [...] Polio, Unspecified 12/29/2007 Tdap 10/20/2013 Varicella 12/23/2016,12/29/2007,2003 Family History Medical History Relation Name Comments Lymphoma Mother Mitral valve prolapse Mother Relation Name Status Comments Mother Alive Social History Tobacco Use Types Packs/Day Years [...] on file 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 Gender Identity Not on file Sexual Orientation Not on file Obstetrics History Last Filed Vital Signs Vital Sign Reading [...] 09/28/2024 11:17 AM CDT Plan of Treatment Health Maintenance Due Date Last Done Comments Depression Screening 2002 Hepatitis C Screening 2002 Meningococcal B Vaccine (1 o f 2 - Standard) 2018 Regular Well Visit/Exam 18-64 2020 DTaP/Tdap/Td Vaccine (8 - Td or Tdap) 10/21/2023 10/20/2013, 10/20/2013, 12/29/2007, Additional history exists Influenza Vaccine (#1) 2025 01/11/2020 Hepatitis B Screening Completed 05/03/2003 , 05/03/2003, 2002, Additional history exists Pneumococcal vaccine <65 Completed 006, 12/19/2005, 05/03/2003, Additional history exists Varicella Vaccines Completed 12/23/2016, 0 12/23/2016, 12/29/2007, Additional history exists HPV Vaccines Completed 12/16/2017, 11/2017, 12/23/2016, Additional history exists Procedures Procedure Name Priority Date/Time Associated Diagnosis [...] PM CDT Narrative 10/07/2024 6:06 AM CDT [facility] Cardiac Diagnostic Lab [address] [place] [address] Transthoracic Echocardiographic Report Patient Name: MANJIT RUIZ O : 2000 (24y ) Gender: M Study Date: 10/06/2024 04:41:59 PM Ht(Inch): 70 Wt(Lb): 179.01 BSA: 2 Postdoctoral Fellow: Melany Gonzalez RDCS Location: [facility] Order Provider: RICO MONTANO Heart Rate: 75 [...] Procedure Note Dm Santo MD - 10/07/2024 [facility] Cardiac Diagnostic [place] [address] [place] [address] Transthoracic Echocardiographic Report Patient Name: MANJIT RUIZ O : 2000 (24y ) Gender: M Study Date: 10/06/2024 04:41:59 PM Ht(Inch): 70 Wt(Lb): 179.01 BSA: 2 Postdoctoral Fellow: Melany Gonzalez RDCS Location: [facility] Order Provider:RICO MONTANO Heart Rate: 75 BMI: [...] ] IVC Diam 1.77 cm MV Decel Ekmo250.12 msec [ 104.00 - 258.00 ] AoR [...] 6:05:49 AM CDT CC: Rico Montano MD us Rico Montano MD CV ECHO PROCEDURES Final R esult * Erythrocyte sedimentation rate (10/01/2024 11:53 AM CDT) Erythrocyte sedimentation rate 2 1 - 15 mm/hr Comment:Testing performed by : [facility], [address] [place] [address]., [id number] Blood 10/01/2024 11:5 3 AM CDT 10/01/2024 12:42 PM CDT Rico Montano MD LAB BLOOD ORDERABLES Final Result Performing Organization Address [facility] Co de Phone Number [facility] [place] [address] * CRP (cardiac risk) (10/01/2024 11:53 AM CDT) hsCRP 0.90 mg/L Comment: Interpretive data Adult [...] last revised on 2017. Testing performed by: [facility], [address] [place] [address]., [id number] Blood 10/01/2024 11:5 3 AM CDT 10/01/2024 12:42 PM CDT Rico Montano MD LAB BLOOD ORDERABLES Final Result Performing Organization Address [facility] de Phone Number [facility] [address] [place] [address] * XR Chest Pa Lateral 2 Views [...] unchanged. Electronically signed by: Bud Cannon M.D. Rocio Pina MD IMG XR PROCEDURES Fin [...] 5:28 AM CDT 09/20/2024 5:43 AM CDT Diogenes Bal MD LAB BLOOD ORDERABLES F inal Result [facility] One [facility] [place] [address] * Differential, auto (09/20/2024 5:28 AM CDT) Neutrophil abs 4.76 1.50 - 6.50 K/cumm Imm gran abs 0.02 0.00 - 0.10 K/cumm [facility] Lymphocyte abs 1.76 0.80 - 3.30 K/cumm [facility] Monocyte abs 0.66 0.20 - 0.80 K/cumm [facility] Eosinophil abs 0.25 0.00 - 0.50 K/cumm [facility] Basophil abs 0.03 0.00 - 0.10 K[facility]cumm [facility] Neutrophil pct 63.7 % [facility] Comment: Interpretive Data Percent cell count reference ranges are not reported, since discordance with absolute values may lead to misinterpretation of CBC data. Current Interpretive Data was last revised on 2017. Imm gran pct 0.3 % [facility] Comment: Interpretive Data Percent cell count reference ranges are not reported, since discordance with absolute values may lead to misinterpretation of CBC data. Current Interpretive Data was last revised on 2017. Lymphocyte pct 23.5 % [facility] Comment: Interpretive Data Percent cell count reference ranges are not reported, since discordance with absolute values may lead to misinterpretation of CBC data. Current Interpretive Data was last revised on 2017. Monocyte pct 8.8 % [facility] Comment: Interpretive Data Percent cell count reference ranges are not reported, since discordance with absolute values may lead to misinterpretation of CBC data. Current Interpretive Data was last revised on 2017. Eosinophil pct 3.3 % [facility] Comment: Interpretive Data Percent cell count reference ranges are not reported, since discordance with absolute values may lead to misinterpretation of CBC data. Current Interpretive Data was last revised on 2017. Basophil pct 0.4 % [facility] Comment: Interpretive Data Percent cell count reference ranges are not reported, since discordance with absolute values may lead to misinterpretation of CBC data. Current Interpretive Data was last revised on 2017. Blood 09/20/2024 5:28 AM CDT 09/20/2024 5:43 AM CDT Rocio Pina MD LAB BLOOD ORDERABLES Final Result Performing Organization Address City/[facility]/ZIP Co de Phone Number [facility] Department [place] [address] * CBC with auto differential (09/20/2024 5:28 AM CDT) [facility] WBC 7.48 3.80 - 9.90 K/cumm Hgb 13.9 13.0 - 17.5 g/dL [facility] Hct 41.8 38.9 - 50.3 % [facility] Plt 206 150 - 400 K/cumm [facility] MPV 10.4 9.1 - 12.3 fL [facility] RBC 4.95 4.30 - 5.80 M/cumm [facility] MCV 84.4 81.3 - 96.4 fL [facility] MCH 28.1 27.1 - 33.3 pg [facility] MCHC 33.3 32.3 - 35.7 g/dL [facility] RDW CV 13.1 11.1 - 14.9 % [facility] RDW SD 40.0 35.7 - 48.1 fL [facility] NRBC abs 0.00 0.00 - 0.01 K/cumm [facility] Blood Venous blood specimen / Unknown 09/20/2024 5:28 AM CDT 09/20/2024 5:43 AM CDT Rocio Pina MD LAB BLOOD ORDERABLES Final Result [facility] [place] [address] * D-dimer, quantitative (09/20/2024 5:28 AM CDT) [facility] D-Dimer <215 <=499 ng/mL FEU Comment: Interpretive [...] 68, VTE cut-off 680 ng/ml FEU. References; Jakub HT et al. Brit Med J. 2013;346:f2492. Radha et al. Annals Int Med. 2015;163:701-11. Current interpretive data was last revised on 2019. Blood 09/20/2024 5:28 AM CDT 09/20/2024 5:43 AM CDT Shahnaz Carmen MD LAB BLOOD ORDERABLES Final Result [facility] One [facility] [place] [address] * Comprehensive metabolic panel (09/20/2024 5:28 AM CDT) Sodium 144 135 - 145 mmol/L Potassium, pl 4.4 3.3 - 4.9 mmol/L [facility] Chloride 107 97 - 110 mmol/L [facility] CO2 26 22 - 32 mmol/L [facility] Anion gap 11 2 - 15 mmol/L [facility] BUN 17 6 - 25 mg/dL [facility] Creatinine 1.05 0.80 - 1.30 mg/dL [facility] Glucose 85 70 - 199 mg/dL [facility] Comment: Interpretive Data Fasting glucose >/= 126 [...] 2022. Calcium 10.0 8.5 - 10.3 mg/dL [facility] Bilirubin, total 0.2 0.1 - 1.2 mg/dL [facility] Protein, pl 7.4 6.5 - 8.5 g/dL [facility] Albumin 4.5 3.5 - 5.0 g/dL [facility] Alk phos 108 40 - 130 Units/L [facility] ALT 16 7 - 55 Units/L [facility] AST 26 10 - 50 Units/L [facility] Blood 09/20/2024 5:28 AM CDT 09/20/2024 5:43 AM CDT Rocio Pina MD LAB BLOOD ORDERABLES Final Result Performing Organization Address [facility] Co de Phone Number [facility] One [facility] [place] [address] * ECG 12-LEAD (09/20/2024 5:05 AM CDT) Narrative [facility] - 09/20/2024 5:05 AM CDT Diogenes Bal [...] follow up: further workup in the ED Rocio Pina MD ECG ORDERABLES Final Result Performing Organization Address [facility]/ZIP Co de Phone Number [facility] * Troponin T high-sensitivity (09/17/2024 6:55 PM CDT) Trop T hs <6 <=22 ng/L Comment: Interpretive Data For further hscTnT resources including the diagnostic algorithm and an aid in interpretation, copy and paste this link: https://nrl.testcatalog.org/show/hsTrop Current Interpretive Data last revised 2020. Blood 09/17/2024 6:55 PM CDT 09/17/2024 6:58 PM CDT us Aimee SHUKLA LAB BLOOD ORDERABLES Final Resu lt [facility] ([place]) 1 [facility] Department of Laboratories [place] [id number] * XR Chest PA Lateral 2 Views (09/17/2024 4:27 PM CDT) Anatomical Region Laterality Modality Body, Chest N/A Computed Radiogr aphy 09/17/2024 4:46 PM CDT Narrative 09/17/2024 4:47 PM CDT EXAM DESCRIPTION: XR CHEST PA LATERAL 2 VIEWS REASON FOR STUDY: chest pain Complaint of chest pressure that radiates down L arm. 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 Pt Vapes [...] 4:47 PM - Electronically signed by Alverto Salazar M.D. MJ: ESPERANZA Report ID: [id number] Reading Location: [id number] Procedure Note Alverto Salazar MD - 09/17/2024 EXAM DESCRIPTION: XR CHEST PA LATERAL 2 VIEWS REASON FOR STUDY: chest pain Complaint of chest pressure that radiates down L arm. 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 Pt Vapes [...] 4:47 PM - Electronically signed by Alverto Salazar M.D. MJ: ESPERANZA Report ID: [id number] Reading Location: [place] [address] Yamil Edgar MD IMG XR PROCEDURES Final Res ult * Troponin T high-sensitivity series (baseline, 2hr, 4hr, 6hr) (09/17/2024 4:17 PM CDT) [facility] Trop T hs 10 <=22 ng/L Comment: Interpretive Data For further hscTnT resources including the diagnostic algorithm and an aid in interpretation, copy and paste this link: https://nrl.testcatalog.org/show/hsTrop Current Interpretive Data last revised 2020. Blood 09/17/2024 4:17 PM CDT 09/17/2024 6:51 PM CDT us Aimee SHUKLA LAB BLOOD ORDERABLES Final Resu lt [facility] [place] 1 [facility] [place] [address] * eGFR (09/17/2024 4:17 PM CDT) [facility] eGFR >90 >=60 mL/min/1. 73 m2 Comment: [...] Edgar MD LAB BLOOD ORDERABLES Final Result [facility] ([place]) 1 [facility] [place] [address] * Differential, auto (09/17/2024 4:17 PM CDT) Pathologist [facility] Neutrophil abs 4.75 1.50 - 6.50 K/cumm Imm gran abs 0.03 0.00 - 0.10 K/cumm [facility] ([place]) Lymphocyte abs 1.51 0.80 - 3.30 K/cumm [facility] ([place]) Monocyte abs 0.39 0.20 - 0.80 K/cumm [facility] ([place]) Eosinophil abs 0.16 0.00 - 0.50 K/cumm [facility] ([place]) Basophil abs 0.02 0.00 - 0.10 K/cumm [facility] ([place]) Neutrophil pct 69.3 % [facility] ([place]) Comment: Interpretive Data Percent cell count reference ranges are not reported, since discordance with absolute values may lead to misinterpretation of CBC data. Current Interpretive Data was last revised on 2017. Imm gran pct 0.4 % [facility] ([place]) Comment: Interpretive Data [...] 2017. Monocyte pct 5.7 % [facility] ([place]) Comment: Interpretive Data [...] revised on 2017. Basophil pct 0.3 % [facility] ([place]) Comment: Interpretive Data Percent cell count reference ranges are not reported, since discordance with absolute values may lead to misinterpretation of CBC data. Current Interpretive Data was last revised on 2017. Blood 09/17/2024 4:17 PM CDT 09/17/2024 4:21 PM CDT Yamil Edgar MD LAB BLOOD ORDERABLES Final Result [facility] ([place]) 1 [facility] [place] [address] * CBC with auto differential (09/17/2024 4:17 PM CDT) WBC 6.86 3.80 - 9.90 K/cumm Hgb 13.7 13.0 - 17.5 g/dL [facility] ([place]) Hct 41.7 38.9 - 50.3 % [facility] ([place]) Plt 239 150 - 400 K/cumm [facility] ([place]) MPV 10.3 9.1 - 12.3 fL [facility] ([place]) RBC 4.87 4.30 - 5.80 M/cumm [facility] MCV 85.6 81.3 - 96.4 fL [facility] ([place]) MCH 28.1 27.1 - 33.3 pg [facility] ([place]) MCHC 32.9 32.3 - 35.7 g/dL [facility] RDW CV 13.1 11.1 - 14.9 % [facility] RDW SD 40.7 35.7 - 48.1 fL [facility] ([place]) NRBC abs 0.00 0.00 - 0.01 K/cumm [facility] ([place]) Blood Venous blood specimen / Unknown 09/17/2024 4:17 PM CDT 09/17/2024 4:21 PM CDT Yamil Edgar MD LAB BLOOD ORDERABLES Final Result [facility] ([place]) 1 [facility] Department [place] [address] * (ABNORMAL) Comprehensive metabolic panel (09/17/2024 4:17 PM CDT) Sodium 140 135 - 145 mmol/L Potassium, pl 3.3 3.3 - 4.9 mmol/L [facility] ([place]) Chloride 107 97 - 110 mmol/L [facility] ([place]) CO2 22 22 - 32 mmol/L [facility] ([place]) Anion gap 11 2 - 15 mmol/L [facility] ([place]) BUN 8 6 - 25 mg/dL [facility] ([place]) Creatinine 0.86 0.80 - 1.30 mg/dL [facility] Glucose 75 70 - 199 mg/dL [facility] ([place]) Comment: Interpretive Data Fasting glucose [...] classification and Diagnosis of Diabetes Diabetes Care 202; 46: S19-S40. Current interpretive data was last [...] ORDERABLES Final Result [facility] ([place]) 1 [facility] [place] [address] * ECG 12 lead (09/17/2024 4:16 PM CDT) 09/17/2024 4:16 PM CDT Narrative [facility] - 09/18/2024 10:40 AM CDT Vent Rate: 70 bpm RR Interval: 847 msec MS Interval: 150 msec QRS Duration: 102 msec QT Interval: 391 msec QTC Interval: 412 msec P-R-T [place]: 17 - 55 - 21 degrees IMPRESSION: SINUS RHYTHM WITH SINUS ARRHYTHMIA ST ELEVATION, PROBABLY EARLY REPOLARIZATION [ST ELEVATION WITH NORMALLY INFLECTED T WAVE] BORDERLINE ECG Compared to prior EKG, heart rate has increased ST elevations are more evident Electronically Signed By: Duke Aldana MD Yamil Edgar MD ECG ORDERABLES Final Resul t [facility] from Last [address] [place] [address] [place] [address] Care Teams Shutdown Coordinator Relationship Specialty Start Date End Date No, Physician PCP - General 09/17/24
--- OUTSIDE RECORDS SUMMARY | 2024-11-09 11:22 | XMS_ITS | Encounter Summary ---
Author Organization [facility] Address [address] [place] [address] Phone Care Team Providers Care Hangersmith Name Role Phone No, Physician Primary Care Provider Encounter Details Date Type Department Care Team (Late st Contact Info) Description 10/07/2024 Results Follow-Up [facility] Cardiology [address] [facility] 8th [place] [address] [place] [address] Lucrecia Montano MD [address] [place] [address] Transthoracic Echo (TTE) Limited/Followup Social History Tobacco Use Types Packs/Day Years [...] on file 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
[2024-11-09 11:23] VITALS: BP 116/74; PULSE 82; RESP 18; TEMP 37.1; O2SAT 100
--- NOTE | 2024-11-09 12:26 | ED_ITS ---
HPI - General Adult General Chief complaint: Headache Stated complaint: Headache Source: patient Mode of arrival: ambulatory Limitations: no limitations History of Present Illness HPI narrative: Patient presents for evaluation of a headache. Symptom onset this morning. His pain caused him to wake from sleep. Pain was initially in the occipital region, rated 10/10 severity. He went to work but pain persisted so that prompted him to come in today. He is current pain rating is 5/10 severity. He describes pain as throbbing. He has some phonophobia but denies photophobia, nausea vomiting. He indicates he missed about a month of work recently due to chest pain. He is wondering if he needs additional time off of work. He tried taking Tylenol for his symptoms. Related Data Allergies Allergy/AdvReac Type Severity Reaction Status Date / Time No Known Allergies Allergy Verified 11/09/24 11:20 Review of Systems Review of Systems: CONSTITUTIONAL: Denies fever, chills, or sweats. EYES: Denies visual changes, redness, or discharge. ENT: Reports phonophobia. Denies rhinorrhea, congestion, sore throat, or otalgia. CARDIOVASCULAR: Denies chest pain, palpitations, or edema. RESPIRATORY: Denies cough or dyspnea. GASTROINTESTINAL: Denies abdominal pain, nausea, vomiting, or diarrhea. GENITOURINARY: Denies dysuria or hematuria. SKIN: Denies rash or itching. MUSCULOSKELETAL: Denies back pain, joint pain, or myalgia. NEUROLOGIC: Reports headache. Denies numbness, dizziness, or weakness. PSYCHIATRIC: Denies anxiety or depression. [facility] Past Medical History Medical History Sinusitis Surgical History Surgical History No pertinent past surgical history Family History Family History Mother Family history non-contributory Social History Social History Smoking status: Current every day smoker Tobacco type: e-cigarettes/vaping Alcohol intake: current Alcohol use details: social Substance use: unknown Gender identity (if verbalized by the patient): Male Exam Narrative: GENERAL: Well-appearing, well-nourished, and in no acute distress. HEAD: Normocephalic, atraumatic. EYES: PERRLA and EOMI. ENT: Nares clear, no rhinorrhea or epistaxis. Mucous membranes moist. Oropharynx without tonsillar hypertrophy exudate or other lesions. Bilateral TMs pearly juarez nonbulging NECK: Supple. No adenopathy or masses. No carotid bruits or JVD CHEST: Clear to auscultation. No respiratory distress. No wheezes rales or rhonchi HEART: Regular rate and rhythm. No murmur heard. Normal peripheral pulses. ABDOMEN: Soft, nontender, nondistended, normal active bowel sounds. EXTREMITIES: Normal range of motion. No edema. SKIN: Warm, dry, no rash. NEURO: No focal deficits. Alert and oriented x3. Normal nsmcja-cw-ruzo exam. Able to perform rapid alternating movements without difficulty PSYCH: Normal mood and affect. Course Course Emergency Course: This is a 24-year-old male who presented for evaluation of headache. I did offer to send him to the emergency department. He declined. He is concerned about bills associated with as he has been out of work for month and was having cardiac workup. He is neurologically intact on exam. Will discharge with Fioricet. He should follow up with primary care and go to the emergency department for persistent or worsening symptoms. Patient in agreement with plan of care. Level of Care: Express Care Visit Vital Signs Vital signs: Vital Signs Temperature 37.1 C 11/09/24 11:23 Pulse Rate 82 11/09/24 11:23 Respiratory Rate 18 11/09/24 11:23 Blood Pressure 116/74 11/09/24 11:23 Pulse Oximetry 100 11/09/24 11:23 Oxygen Delivery Room Air 11/09/24 11:23 Temperature 37.1 C 11/09/24 11:23 Pulse Rate 82 11/09/24 11:23 Respiratory Rate 18 11/09/24 11:23 Blood Pressure 116/74 11/09/24 11:23 Pulse Oximetry 100 11/09/24 11:23 Oxygen Delivery Room Air 11/09/24 11:23 Medical Decision Making Vital Signs Vital Signs: Vital Signs Temperature 37.1 C 11/09/24 11:23 Pulse Rate 82 11/09/24 11:23 Respiratory Rate 18 11/09/24 11:23 Blood Pressure 116/74 11/09/24 11:23 Pulse Oximetry 100 11/09/24 11:23 Oxygen Delivery Room Air 11/09/24 11:23 Temperature 37.1 C 11/09/24 11:23 Pulse Rate 82 11/09/24 11:23 Respiratory Rate 18 11/09/24 11:23 Blood Pressure 116/74 11/09/24 11:23 Pulse Oximetry 100 11/09/24 11:23 Oxygen Delivery Room Air 11/09/24 11:23 Discharge Plan Discharge Clinical Impression: Headache Patient Disposition: Home Condition: Stable Instructions: Antibiotic Form, Acute Headache (DC) Patient Language: Syriac Prescriptions: New wbejkubpgg-nixcznlyrnqqj-phgj [Fioricet] 50-300-40 mg capsule 1 - 2 cap PO Q6H PRN (Reason: pain) Qty: 12 0RF Follow-up/Referrals: Kb Rodgers MD [Physician] - Stand Alone Forms: Work/School Release IP Time of Disposition: 12:06
== END 2024-11-09 12:13 | disposition home or self-care (01) ==
PROVIDERS: Emergency Provider Nurse Practitioner
DX: R51.9 Headache, unspecified (principal); F17.290 Nicotine dependence, other tobacco product, uncomplicated
CPT/HCPCS: 99213; G0463